=== PATIENT | male | born 1960 | race Caucasian/White ===

== ENCOUNTER 2017-10-27 00:27 | Observation (INO) | payer OTHER, SELFPAY ==
[2017-10-27] VITALS (12 sets, daily range): BP systolic 101–157; BP diastolic 39–81; PULSE 55–78; RESP 14–18; TEMP 36.6–37.2; O2SAT 95–98; BMI 24.9; BMI 24.8
[2017-10-27 00:36] LABS: Bedside Glucose 103 mg/dL (70-110)
--- NOTE | 2017-10-27 00:37 | EKG12_ITS ---
Test Reason : CONFUSION Blood Pressure : / mmHG Vent. Rate : 066 BPM Atrial Rate : 066 BPM P-R Int : 148 ms QRS Dur : 086 ms QT Int : 386 ms P-R-T Axes : 066 069 023 degrees QTc Int : 404 ms Normal sinus rhythm Normal ECG Confirmed by FAB GONZALEZ, SORAYA ([id number]), map editor LINDA HAMILTON ([id number]) on 10/31/2017 2:17:48 PM Referred By: GEORGIANA Confirmed By:SORAYA SANON MD
--- NOTE | 2017-10-27 00:38 | CT_ITS ---
STUDY: CTA NECK WITH CONTRAST REASON FOR EXAM: Male, 57 years old. 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 MIP images were reconstructed from the axial data set. Post-processing of the angiographic images was performed, with multiplanar reformation and 3D reconstruction. Individualized dose optimization techniques were used for this CT. COMPARISON: None. FINDINGS: AORTIC ARCH: Normal visualized aortic arch. Normal origins of the brachiocephalic, left common carotid, and left subclavian arteries. RIGHT CAROTID ARTERIES: Normal right common carotid artery (CCA). Normal right common carotid bulb. Normal origin of the right internal carotid (ICA) artery without a hemodynamically significant stenosis. Normal visualized cervical portion of the right internal carotid artery. Normal origin of the right external carotid artery (ECA). LEFT CAROTID ARTERIES: Normal left common carotid artery (CCA). Normal left common carotid bulb. Normal origin of the left internal carotid (ICA) artery without a hemodynamically significant stenosis. Normal visualized cervical portion of the left internal carotid artery. Normal origin of the left external carotid artery (ECA). VERTEBRAL ARTERIES: There is enhancement within the bilateral vertebral arteries with a small right vertebral artery, and a dominant left vertebral artery. CT/CTA Neck W/WO Contrast IMPRESSION: Normal bilateral cervical carotid and vertebral arteries. The degree of stenosis calculation is in accordance with NASCET criteria. Electronically Signed: Lavon Shukla MD at 2:10 EDT Tel , Service support ,
--- NOTE | 2017-10-27 00:38 | CT_ITS ---
STUDY: CTA OF THE BRAIN REASON FOR EXAM: Male, 57 years old. Headache, dizziness, and visual disturbance RADIATION DOSAGE (If Supplied By Facility): CTDIvol = ( 29.75 ) mGy, DLP = ( 1602.68 ) mGycm TECHNIQUE: CT angiography was performed with a multi-detector CT scanner. Data acquisition was obtained from the skull base through the vertex following intravenous administration of ml of . MIP images were reconstructed from the axial data set. Post-processing of the angiographic images was performed, with multiplanar reformation and 3D reconstruction. Individualized dose optimization techniques were used for this CT. COMPARISON: None. FINDINGS: Normal bilateral petrous carotid arteries. Normal right cavernous carotid artery with a normal supraclinoid bifurcation. Normal left cavernous carotid artery with a normal supraclinoid bifurcation. Normal right A1 segments of the anterior cerebral artery. Normal left A1 segments of the anterior cerebral artery. Normal intact anterior communicating artery (ACOM). Normal bilateral A2 segments of the anterior cerebral arteries. Normal right M1 and M2 segments of the middle cerebral arteries, with a normal M1 bifurcation. Normal left M1 and M2 segments of the middle cerebral arteries, with a normal M1 bifurcation. Normal right posterior communicating artery (PCOM). Normal left posterior communicating artery (PCOM). Normal bilateral vertebral arteries. Normal basilar artery with a normal basilar bifurcation. The visualized bilateral superior cerebellar (SCA) arteries are normal. Normal bilateral P1, P2 and visualized P3 segments of the posterior cerebral arteries. There is no demonstrated aneurysm of the [place]. Mild bilateral periventricular white matter chronic small vessel disease, symmetric in distribution. Geographic hypoattenuation within the left posterior medial temporal lobe with extension into the medial left parieto-occipital lobe. CT/CTA Head W/WO Contrast IMPRESSION: 1. 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 Dedicated MR imaging is recommended for further characterization. 2. No CT angiographic abnormality of the head.. Electronically Signed: Ramos Angel MD at 2:19 EDT Tel , Service support ,
[2017-10-27 00:44] LABS: Absolute Neutrophil Count 6.2 X10^3/uL (2.0-7.7); Basophil# 0.02 X10^3/uL; Basophil% 0.2 % (0-1); Eosinophil# 0.05 X10^3/uL; Eosinophils% 0.6 % (0-5); Hematocrit 41.2 % (40-54); Hemoglobin 13.7 g/dl (13.0-16.5); Lymphocyte % 20.5 % (19-41); Mean Corp Hgb Conc 33.3 g/gl (32-36); Mean Corpuscular Volume 87.3 fL (80-94); Mean Platelet Vol. 10.4 fl (6.2-12.0); Monocyte# 0.72 X10^3/uL; Monocyte% 8.2 % (0-10); Neutrophil # 6.16 X10^3/uL (2.7-7.7); Neutrophil % 70.4 % (47-70); Platelet Count 217 K/mm3 (150-450); Red Blood Count 4.72 M/mm3 (4.6-6.2); White Blood Count 8.8 K/mm3 (4.4-11.0)
[2017-10-27 00:46] LABS: POSITIVE COUNT NO; POSITIVE DIFFERENTIAL NO; POSITIVE MORPHOLOGY NO
[2017-10-27] MEDS: 0.9% Normal Saline 1,000 ML 150 ML IV (00:50)
[2017-10-27 01:05] LABS: Anion Gap 9 (5-15); BUN 16 mg/dL (7-18); BUN/Creat Ratio 14.4 RATIO (10-20); Calcium,Total 8.9 mg/dL (8.5-10.1); Chloride 106 mmol/L (98-107); Creatinine, Serum 1.11 mg/dL (0.70-1.30); EST Glomerular Filtration Rate 72 mL/min (>60); Est Glom Filt Rate - Afr Amer 87 mL/min (>60); Estimated Creatinine Clearance 73.99 ml/min; Glucose 105 mg/dL (74-106); Potassium 3.9 mmol/L (3.5-5.1); Sodium Level 143 mmol/L (136-145)
--- NOTE | 2017-10-27 02:28 | ED.VISSUMM ---
- ER Visit Summary Date of Service: 10/27/17 Chief Complaint: [Confusion] History of Present Illness: The patient is a 57 M [presents to the emergency department with some confusion that started yesterday. 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 Patient's symptoms lasted about 2 hours. Patient's had some blurry vision off and on since yesterday. 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 Patient states that today he developed left-sided headache. He denies any weakness that is focal. Patient denies any paresthesias. Patient is never had symptoms like this before. Patient denies any falls or head injuries.] Physical Examination: [HEENT-PERRLA, EOMI. Cranial nerves II through XII grossly intact. TMs clear. Mucous membranes moist. No adenopathy. Cardiovascular-regular rate and rhythm without murmur or ectopy Lungs-clear to auscultation, chest wall stable without crepitus or subcu emphysema Abdomen-normoactive bowel sounds, soft, nontender, no rebound or rigidity, no peritoneal signs. Neuro qxie-tmhmqo-wxat and heel guardado testing within normal limits, negative Romberg, negative pronator drift, fundi benign. NIH stroke scale was 0. Extremities-intact ?4, normal range of motion, normal pulses, atraumatic] Test Results: [CBC with differential obtained showed a white count of 8.8, hemoglobin 13.7, hematocrit 41, platelets 217. Chemistries unremarkable. Troponin was less than 0.015. EKG shows sinus rhythm with a ventricular rate 66 bpm with no acute ST segment changes. CT scan of the brain showed leal-white matter differentiation abnormality in the posterior medial left temporal parietal occipital lobe of indeterminate age dedicated MR imaging is recommended for further characterization. CTA of head and neck were unremarkable.] Emergency Department Course and Treatment: [Case discussed with hospitalist will evaluate patient for admission] Treatment Plan: [Admit for further workup and evaluation of suspected stroke] Disposition: [Admit] Impression: [CVA] This note was generated with Dragon dictation software. It may contain incorrect words, spelling, and punctuation that were not noted in review of the chart prior to signing ED Disposition - Plan for ED Patient: Chief Complaint: Confusion Referrals: Hawk Holley MD [Primary Care Provider] -
--- NOTE | 2017-10-27 02:33 | ED.DCSUM_ITS ---
- ER Visit Summary Date of Service: 10/27/17 Chief Complaint: [Confusion] History of Present Illness: The patient is a 57 M [presents to the emergency department with some confusion that started yesterday. 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 Patient's symptoms lasted about 2 hours. Patient's had some blurry vision off and on since yesterday. 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 Patient states that today he developed left-sided headache. He denies any weakness that is focal. Patient denies any paresthesias. Patient is never had symptoms like this before. Patient denies any falls or head injuries.] Physical Examination: [HEENT-PERRLA, EOMI. Cranial nerves II through XII grossly intact. TMs clear. Mucous membranes moist. No adenopathy. Cardiovascular-regular rate and rhythm without murmur or ectopy Lungs-clear to auscultation, chest wall stable without crepitus or subcu emphysema Abdomen-normoactive bowel sounds, soft, nontender, no rebound or rigidity, no peritoneal signs. Neuro twrr-nspbaq-rrhy and heel guardado testing within normal limits, negative Romberg, negative pronator drift, fundi benign. NIH stroke scale was 0. Extremities-intact ?4, normal range of motion, normal pulses, atraumatic] Test Results: [CBC with differential obtained showed a white count of 8.8, hemoglobin 13.7, hematocrit 41, platelets 217. Chemistries unremarkable. Troponin was less than 0.015. EKG shows sinus rhythm with a ventricular rate 66 bpm with no acute ST segment changes. CT scan of the brain showed leal- white matter differentiation abnormality in the posterior medial left temporal parietal occipital lobe of indeterminate age dedicated MR imaging is recommended for further characterization. CTA of head and neck were unremarkable.] Emergency Department Course and Treatment: [Case discussed with hospitalist will evaluate patient for admission] Treatment Plan: [Admit for further workup and evaluation of suspected stroke] Disposition: [Admit] Impression: [CVA] This note was generated with Dragon dictation software. It may contain incorrect words, spelling, and punctuation that were not noted in review of the chart prior to signing ED Disposition - Plan for ED Patient: Chief Complaint: Confusion Referrals: Hawk Holley MD [Primary Care Provider] -
--- NOTE | 2017-10-27 02:52 | PCM.HP.STD ---
Problem List (1) CVA (cerebral vascular accident) Status: Acute History of Present Illness Date of Admission: 10/27/17 Chief Complaint: Dizziness, headache, right-sided numbness. The patient is a 57 year old M who was in his normal state of health up until the . That evening, patient started experiencing dizziness as well as a left-sided headache. Patient was also having confusion. 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 Patient called his and had some expressive aphasia plus some slurred speech. Patient got home and then was sent to the emergency room. Patient states that much of his symptoms have resolved in the having a headache which did start with this. Patient underwent a CAT scan that showed a left-sided temporal parietal occipital stroke. Patient is being admitted for further stroke workup. Patient denies ever having had a stroke before. Patient also states that he did have right side visual ziegler deficit. Deficit has resolved. [] Past Medical History Allergies No Known Allergies Allergy (Verified 10/27/17 00:28) Home Medications: Ambulatory Orders Medication Instructions Recorded NK [NK] 10/27/17 Psychiatric History: No pertinent psych hx Lives: Spouse/ Significant Other Smoking Status: Never smoker Tobacco Use: Non-smoker Alcohol: None Drugs: None - *Family History Paternal History Items: Heart Disease Review of Systems Constitutional: Denies: Chills, Fever, Weight Change Eyes: Reports: Vision Change - Right-sided homonymous hemianopia. Denies: Blurred vision, Double vision HEENT: Denies: Difficulty Hearing, Dysphasia Cardiovascular: Denies: Chest Pain, Edema Respiratory: Denies: Cough, Shortness of breath at rest, Sputum production Gastrointestinal: Reports: Nausea, Vomiting. Denies: Abdominal Pain Genitourinary: Denies: Dysuria Musculoskeletal: Denies: Joint Pain, Joint Tenderness Skin: Denies: Rash, Wounds Neurological: Reports: Change in Speech, Slurred speech, Confusion, Headaches, Numbness. Denies: Balance problems, Blurred vision, Double vision, Difficulty swallowing, Focal weakness, Incoordination Psychiatric: Denies: Anxiety, Depression Endocrine: Denies: Change in Body Habitus Hematologic/ Lymphatic: Denies: Easy Bruising, Easy Bleeding, Hx of blood clot VTE Information - Inpt Only VTE Present on Admission: No VTE Pharm Prophylaxis ordered?: Yes Patient Problems: Active and Suspected Problems CVA (cerebral vascular accident) (Acute) - Physical Exam General: Alert, Oriented x3, Cooperative, No apparent distress HEENT: Atraumatic, PERRLA, EOMI, Normocephalic Oral: Moist Mucosa, No Gingival or Mucosal Lesions/ Ulcerations Neck: No Nodes, Thyroid Normal Size and Texture Lungs: Clear to auscultation, Normal air movement, No rhonchi, No wheeze Cardiovascular: Regular rate, Regular Rhythm, Normal S1, Normal S2, No murmurs Abdomen: Bowel Sounds Present, Soft, Non Tender, Non-Distended, No Hepato-splenomegaly Extremities: No edema, No Calf Tenderness Skin: No rashes, No breakdown Musculoskeletal: No Tenderness to Palpation of Joints or Extremities, No Muscle Wasting Neurological: Cranial nerves II-XII grossly intact, Neuro grossly intact, Motor Exam 5/5 strength throughout, Sensory exam intact to light touch and pain, Coordination normal Psych/Mental Status: Normal Affect, Appropriate Vital Signs Temp Pulse Resp BP Pulse Ox 36.7 C 78 18 142/81 H 96 10/27/17 02:32 10/27/17 02:32 10/27/17 02:32 10/27/17 02:32 10/27/17 02:32 Oxygen Delivery Method Room Air Weight: 78.9 kg Body Mass Index (BMI) 24.9 Finger Stick Blood Glucose 103 Laboratory Tests Past 24 Hrs 10/27/17 10/27/17 00:31 00:31 WBC 8.8 RBC 4.72 Hgb 13.7 Hct 41.2 MCV 87.3 MCH 29.0 MCHC 33.3 RDW 13.0 RDW Differential 41.0 Plt Count 217 MPV 10.4 Immature Gran % (Auto) 0.100 Neut % (Auto) 70.4 H Lymph % (Auto) 20.5 [place] % (Auto) 8.2 Eos % (Auto) 0.6 Baso % (Auto) 0.2 Absolute Neuts (auto) 6.2 Absolute Lymphs (auto) 1.80 Total Counted Not Reportable Sodium 143 Potassium 3.9 Chloride 106 Carbon Dioxide 28.0 Anion Gap 9 BUN 16 Creatinine 1.11 Estim Creat Clear Calc 73.99 Est GFR (MDRD) Af Amer 87 Est GFR (MDRD) Non-Af 72 BUN/Creatinine Ratio 14.4 Glucose 105 Calcium 8.9 Troponin I < 0.015 POC Glucose 10/27/17 00:31 POC Glucose 103 Clinical Impression(s) from Imaging Studies Head CTA 10/27/17 00:38 IMPRESSION: 1. 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 Dedicated MR imaging is recommended for further characterization. 2. No CT angiographic abnormality of the head.. Electronically Signed: Ramos Angel MD at 2:19 EDT Tel , Service support , Neck CTA 10/27/17 00:38 IMPRESSION: Normal bilateral cervical carotid and vertebral arteries. The degree of stenosis calculation is in accordance with NASCET criteria. Electronically Signed: Lavon Shukla MD at 2:10 EDT Tel , Service support , EKG reviewed and showed normal sinus rhythm without any acute changes. Assessment/Plan Active and Suspected Problems CVA (cerebral vascular accident) (Acute) 1. Stroke Noted on the CAT scan. Likely subacute. Patient not a candidate for TPA as his symptoms have greatly improved and patient is far outside the window for therapeutic use. Patient will be admitted, he will have an echocardiogram, MRI of the brain (MRA is not necessary as patient has already undergone a CTA of the head neck), neurology consults, bedside swallow evaluation, physical and occupational therapy evaluate and treat. Will start the patient on aspirin and a high intensity statin 2. DVT prophylaxis with Lovenox Anticipated the patient's length of stay will be less than 2 midnights therefore patient will be observation status at this time. Code Visit OBSV E&M: 15341 Initial observation care L3
--- NOTE | 2017-10-27 02:59 | HP.PCM_ITS ---
Problem List (1) CVA (cerebral vascular accident) Status: Acute History of Present Illness Date of Admission: 10/27/17 Chief Complaint: Dizziness, headache, right-sided numbness. The patient is a 57 year old M who was in his normal state of health up until the . That evening, patient started experiencing dizziness as well as a left-sided headache. Patient was also having confusion. 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 Patient called his and had some expressive aphasia plus some slurred speech. Patient got home and then was sent to the emergency room. Patient states that much of his symptoms have resolved in the having a headache which did start with this. Patient underwent a CAT scan that showed a left- sided temporal parietal occipital stroke. Patient is being admitted for further stroke workup. Patient denies ever having had a stroke before. Patient also states that he did have right side visual ziegler deficit. Deficit has resolved. [] Past Medical History Allergies No Known Allergies Allergy (Verified 10/27/17 00:28) Home Medications: Ambulatory Orders Medication Instructions Recorded NK [NK] 10/27/17 Psychiatric History: No pertinent psych hx Lives: Spouse/ Significant Other Smoking Status: Never smoker Tobacco Use: Non-smoker Alcohol: None Drugs: None - *Family History Paternal History Items: Heart Disease Review of Systems Constitutional: Denies: Chills, Fever, Weight Change Eyes: Reports: Vision Change - Right-sided homonymous hemianopia. Denies: Blurred vision, Double vision HEENT: Denies: Difficulty Hearing, Dysphasia Cardiovascular: Denies: Chest Pain, Edema Respiratory: Denies: Cough, Shortness of breath at rest, Sputum production Gastrointestinal: Reports: Nausea, Vomiting. Denies: Abdominal Pain Genitourinary: Denies: Dysuria Musculoskeletal: Denies: Joint Pain, Joint Tenderness Skin: Denies: Rash, Wounds Neurological: Reports: Change in Speech, Slurred speech, Confusion, Headaches, Numbness. Denies: Balance problems, Blurred vision, Double vision, Difficulty swallowing, Focal weakness, Incoordination Psychiatric: Denies: Anxiety, Depression Endocrine: Denies: Change in Body Habitus Hematologic/ Lymphatic: Denies: Easy Bruising, Easy Bleeding, Hx of blood clot VTE Information - Inpt Only VTE Present on Admission: No VTE Pharm Prophylaxis ordered?: Yes Patient Problems: Active and Suspected Problems CVA (cerebral vascular accident) (Acute) - Physical Exam General: Alert, Oriented x3, Cooperative, No apparent distress HEENT: Atraumatic, PERRLA, EOMI, Normocephalic Oral: Moist Mucosa, No Gingival or Mucosal Lesions/ Ulcerations Neck: No Nodes, Thyroid Normal Size and Texture Lungs: Clear to auscultation, Normal air movement, No rhonchi, No wheeze Cardiovascular: Regular rate, Regular Rhythm, Normal S1, Normal S2, No murmurs Abdomen: Bowel Sounds Present, Soft, Non Tender, Non-Distended, No Hepato- splenomegaly Extremities: No edema, No Calf Tenderness Skin: No rashes, No breakdown Musculoskeletal: No Tenderness to Palpation of Joints or Extremities, No Muscle Wasting Neurological: Cranial nerves II-XII grossly intact, Neuro grossly intact, Motor Exam 5/5 strength throughout, Sensory exam intact to light touch and pain, Coordination normal Psych/Mental Status: Normal Affect, Appropriate Vital Signs Temp Pulse Resp BP Pulse Ox 36.7 C 78 18 142/81 H 96 10/27/17 02:32 10/27/17 02:32 10/27/17 02:32 10/27/17 02:32 10/27/17 02:32 Oxygen Delivery Method Room Air Weight: 78.9 kg Body Mass Index (BMI) 24.9 Finger Stick Blood Glucose 103 Laboratory Tests Past 24 Hrs 10/27/17 10/27/17 00:31 00:31 WBC 8.8 RBC 4.72 Hgb 13.7 Hct 41.2 MCV 87.3 MCH 29.0 MCHC 33.3 RDW 13.0 RDW Differential 41.0 Plt Count 217 MPV 10.4 Immature Gran % (Auto) 0.100 Neut % (Auto) 70.4 H Lymph % (Auto) 20.5 [place] % (Auto) 8.2 Eos % (Auto) 0.6 Baso % (Auto) 0.2 Absolute Neuts (auto) 6.2 Absolute Lymphs (auto) 1.80 Total Counted Not Reportable Sodium 143 Potassium 3.9 Chloride 106 Carbon Dioxide 28.0 Anion Gap 9 BUN 16 Creatinine 1.11 Estim Creat Clear Calc 73.99 Est GFR (MDRD) Af Amer 87 Est GFR (MDRD) Non-Af 72 BUN/Creatinine Ratio 14.4 Glucose 105 Calcium 8.9 Troponin I < 0.015 POC Glucose 10/27/17 00:31 POC Glucose 103 Clinical Impression(s) from Imaging Studies Head CTA 10/27/17 00:38 IMPRESSION: 1. 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 Dedicated MR imaging is recommended for further characterization. 2. No CT angiographic abnormality of the head.. Electronically Signed: Ramos Angel MD at 2:19 EDT Tel , Service support , Neck CTA 10/27/17 00:38 IMPRESSION: Normal bilateral cervical carotid and vertebral arteries. The degree of stenosis calculation is in accordance with NASCET criteria. Electronically Signed: Lavon Shukla MD at 2:10 EDT Tel , Service support , EKG reviewed and showed normal sinus rhythm without any acute changes. Assessment/Plan Active and Suspected Problems CVA (cerebral vascular accident) (Acute) 1. Stroke * Noted on the CAT scan. Likely subacute. * Patient not a candidate for TPA as his symptoms have greatly improved and patient is far outside the window for therapeutic use. * Patient will be admitted, he will have an echocardiogram, MRI of the brain ( MRA is not necessary as patient has already undergone a CTA of the head neck), neurology consults, bedside swallow evaluation, physical and occupational therapy evaluate and treat. * Will start the patient on aspirin and a high intensity statin 2. DVT prophylaxis with Lovenox Anticipated the patient's length of stay will be less than 2 midnights therefore patient will be observation status at this time. Code Visit OBSV E&M: 94728 Initial observation care L3
--- NOTE | 2017-10-27 03:11 | MRI_ITS ---
STUDY: MRI BRAIN WITH AND WITHOUT CONTRAST REASON FOR EXAM: Male, 57 years old. Memory loss. Unable to find words. TECHNIQUE: Standardized multiplanar fat and water weighted pulse sequences were obtained. 8 ml of Gadavist contrast material was administered intravenously for the contrast portion of the examination. COMPARISON: CTA head and neck 10/27/2017. FINDINGS: Restricted diffusion involving the left anterior para hippocampus/left hippocampus and a smaller portion of the left lingual gyrus. This is also visible on the T2 FLAIR sequences. This is subacute ischemic infarct. Normal size of the ventricles and extra-axial spaces for the patient's age. Normal white matter tracts of the supratentorial brain. Normal bilateral basal ganglia. Normal thalami. There is no extra-axial fluid accumulation. Normal flow voids within the major intracranial circulation suggesting patency by spin echo criteria. Normal venous enhancement. There is no enhancing intra-axial or extra-axial abnormality. Normal sella turcica, pituitary gland, infundibular stalk, optic chiasm and hypothalamus. Normal tectal plate and pineal gland. Normal midbrain, lonnie and medulla. Normal cerebellum. Normal basal cisterns. Normal bilateral temporal bones. Normal bilateral internal auditory canals. No demonstrated orbital abnormality, within the constraints of a routine brain study. Normal visualized paranasal sinuses. Normal calvarium and skull base. Normal visualized soft tissue structures. Normal visualized upper cervical spine. MRI/Brain W/WO Contrast IMPRESSION: Subacute cortical based ischemic infarct involving the left parahippocampus/hippocampus and smaller portions of the left lingual gyrus. This is suspiciously cardioembolic. Electronically Signed: Gerardo Conner MD at 9:22 EDT , Service support ,
--- NOTE | 2017-10-27 03:11 | ECHOD_ITS ---
Version 2 Reason For Study: TIA/STROKE Procedure This was a 2D Doppler, Color Flow transthoracic echocardiogram. Exam performed portable in patient room. Left Ventricle Normal LV size. Left ventricular systolic function is normal. The estimated ejection fraction is 60 %. Transmitral diastolic flow velocities suggest mild (stage 1) diastolic dysfunction (reversed pattern). No regional wall motion abnormalities noted. Right Ventricle Normal RV size. Normal systolic function. Atria Normal left atrium. Normal right atrium. Patent foramen ovale. Mitral Valve Normal mitral valve. Trivial eccentric mitral valve insufficiency. Tricuspid Valve Normal tricuspid valve. Mild (1+) tricuspid valve insufficiency. Aortic Valve Trisinus/trileaflet aortic valve. Mild (1+) eccentric aortic valve insufficiency. Pulmonic Valve Normal pulmonic valve. Great Vessels Mild to moderately dilated aortic root. The pulmonary artery is normal size. Normal inferior vena cava. Pericardium/Pleural No pericardial effusion. Medication Performed a rapid injection of agitated mix of 9 cc saline and 1cc air to assess for atrial septal defect. MMode/2D Measurements & Calculations LVIDd: 4.2 cm IVSd: 1.0 cm Ao root diam: 4.4 cm LVIDs: 2.5 cm LVPWd: 1.2 cm LA dimension: 2.8 cm RVDd: 4.1 cm FS: 41.4 % LAV(MOD-bp): 47.9 ml LAV(MOD-bp) Indexed: 24.4 ml/m2 LA A4 area: 15.2 cm2 RA A4 area: 12.2 cm2 LAV(MOD-sp2): 47.7 ml LAV(MOD-sp4): 40.9 ml Time Measurements MV dec time: 0.25 sec Doppler Measurements & Calculations MV E max joel: 59.9 cm/sec Lat Peak E' Joel: 11.6 cm/sec Med Peak E' Joel: 8.1 cm/sec MV A max joel: 70.2 cm/sec E/E' lat: 5.2 E/E' med: 7.4 MV E/A: 0.85 MV V2 max: 80.9 cm/sec MV P1/2t max joel: 80.9 cm/sec Ao V2 max: 103.4 cm/sec MV max P.6 mmHg MV P1/2t: 104.2 msec Ao max P.3 mmHg MV V2 mean: 44.9 cm/sec MV dec slope: 227.4 cm/sec2 Ao V2 mean: 72.1 cm/sec MV mean P.94 mmHg MVA(P1/2t): 2.1 cm2 Ao mean P.3 mmHg MV V2 VTI: 27.8 cm Ao V2 VTI: 21.3 cm AI max joel: 344.2 cm/sec LV V1 max: 94.5 cm/sec PA V2 max: 89.6 cm/sec AI max P.4 mmHg LV V1 max P.6 mmHg AI dec slope: 164.4 cm/sec2 LV V1 mean P.7 mmHg AI P1/2t: 613.4 msec LV V1 mean: 60.4 cm/sec LV V1 VTI: 20.6 cm Interpretation Summary Normal LV size. Left ventricular systolic function is normal. The estimated ejection fraction is 60 %. Transmitral diastolic flow velocities suggest mild (stage 1) diastolic dysfunction (reversed pattern). Mild to moderately dilated aortic root. Patent foramen ovale. Ordering Physician: Nghia Barnett Referring Physician: Severino Holley Performed By: Glen Avendaño RCS
[2017-10-27] MEDS: Acetaminophen 325 MG Tablet 650 MG PO (03:44)
[2017-10-27 06:12] LABS: Cholesterol 127 mg/dL (200); High Density Lipoprotein 36 mg/dL; Triglycerides 54 mg/dL; Very Low Density Lipoprotein 11 mg/dL (5-40)
[2017-10-27] MEDS: Enoxaparin 40 MG/0.4 ML Syringe SC (09:23)
[2017-10-27] MEDS: Aspirin 81 MG TAB.CHEW PO (09:24)
--- NOTE | 2017-10-27 10:03 | PCM.CONS.GEN ---
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 today he is improved, not baseline. still has headache and confusion. non-smoker. no alcohol and denies hypersomnia, did have a sleep study 20yrs ago for unclear reasons at [facility]. reports doesnt check bp at home, but when he gets his sandy physicals it has been good. does admit to recent stress, reports not severe.had echo this am, results pending The patient is a 57 year old M who was in his normal state of health up until the . That evening, patient started experiencing dizziness as well as a left-sided headache. Patient was also having confusion. 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 Patient called his and had some expressive aphasia plus some slurred speech. Patient got home and then was sent to the emergency room. Patient states that much of his symptoms have resolved in the having a headache which did start with this. Patient underwent a CAT scan that showed a left-sided temporal parietal occipital stroke. Patient is being admitted for further stroke workup. Patient denies ever having had a stroke before. Patient also states that he did have right side visual ziegler deficit. Deficit has resolved. Past Medical History Allergies No Known Allergies Allergy (Verified 10/27/17 00:28) Home Medications: Ambulatory Orders Medication Instructions Recorded NK [NK] 10/27/17 Psychiatric History: No pertinent psych hx Lives: Spouse/ Significant Other Smoking Status: Never smoker Tobacco Use: Non-smoker Alcohol: None Drugs: None - *Family History Paternal History Items: Heart Disease Review of Systems Constitutional: Denies: Chills, Fever, Weight Change HEENT: Denies: Head Aches, Sinus Congestion, Sinus Drainage Cardiovascular: Denies: Chest Pain, Palpitations Respiratory: Denies: Cough, Shortness of breath at rest, Sputum production Gastrointestinal: Denies: Abdominal Pain, Nausea, Vomiting Genitourinary: Denies: Dysuria Musculoskeletal: Denies: Joint Pain, Joint Tenderness Skin: Denies: Rash, Wounds Neurological: Denies: Numbness, Tingling, Focal weakness Psychiatric: Denies: Anxiety, Depression, Homicidal Ideations, Suicidal Ideations Hematologic/ Lymphatic: Denies: Easy Bruising, Easy Bleeding Patient Problems: Active and Suspected Problems CVA (cerebral vascular accident) (Acute) - Physical Exam General: Alert, Oriented x3, Cooperative HEENT: Atraumatic, PERRLA, EOMI, Normocephalic Neck: Supple, No JVD, Negative Carotid Bruits Lungs: Clear to auscultation, Normal air movement Cardiovascular: Regular rate, No murmurs Abdomen: Bowel Sounds Present, Soft, Non Tender Extremities: No edema, Capillary Refill Less than 3 Seconds Skin: No rashes, No breakdown Musculoskeletal: No Tenderness to Palpation of Joints or Extremities Neurological: Cranial nerves II-XII grossly intact Psych/Mental Status: Normal Affect, Appropriate Vital Signs Temp Pulse Resp BP Pulse Ox 36.7 C 56 L 16 113/71 97 10/27/17 09:10 10/27/17 09:10 10/27/17 09:10 10/27/17 09:10 10/27/17 09:10 Oxygen Delivery Method Room Air Weight: 78.6 kg Body Mass Index (BMI) 24.8 Laboratory Tests Past 24 Hrs 10/27/17 05:30 Triglycerides 54 Cholesterol 127 LDL Cholesterol 80 VLDL Cholesterol 11 HDL Cholesterol 36 L Current Home Med List Medication Instructions Recorded Confirmed Type NK [NK] 10/27/17 10/27/17 History takes herbal supplements at home, super algae Current Medications Generic Name Dose Route Start Last Admin Trade Name Freq PRN Reason Stop Dose Admin Acetaminophen 650 mg 10/27/17 03:11 10/27/17 03:44 Tylenol PO 650 mg Q6H PRN PRN Administration Mild Pain (1-3)/Temp > 100.7 F Aspirin 81 mg 10/27/17 08:00 10/27/17 09:24 Aspirin, Baby PO 81 mg DAILY@0800 [facility] Administration Atorvastatin Calcium 80 mg 10/27/17 22:00 Lipitor PO DAILY@2200 [facility] Enoxaparin Sodium 40 mg 10/27/17 10:00 10/27/17 09:23 Lovenox SC 40 mg DAILY@1000 [facility] Administration Magnesium Hydroxide 30 ml 10/27/17 03:11 Milk Of Magnesia PO DAILY PRN Constipation Ondansetron HCl 4 mg 10/27/17 03:11 Zofran IV Q8H PRN PRN NAUSEA Sodium Chloride 5 - 30 ml 10/27/17 03:41 IV UD PRN SALINE FLUSH mri reviewed acute left salon leader infarct cta head and neck reviewed, no stenosis Assessment/Plan Active and Suspected Problems CVA (cerebral vascular accident) (Acute) left salon leader infarct, acute, likely idiopathic pt/ot/speech likely ok to dc home if echo normal and sinus on tele consider outpt event monitor pt defers rx for stress rec exercise as outpt rec outpt sleep study outpt followup if above negative
--- NOTE | 2017-10-27 10:14 | CON.PCM_ITS ---
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 today he is improved, not baseline. still has headache and confusion. non-smoker. no alcohol and denies hypersomnia, did have a sleep study 20yrs ago for unclear reasons at [facility]. reports doesnt check bp at home, but when he gets his sandy physicals it has been good. does admit to recent stress, reports not severe.had echo this am, results pending The patient is a 57 year old M who was in his normal state of health up until the . That evening, patient started experiencing dizziness as well as a left-sided headache. Patient was also having confusion. 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 Patient called his and had some expressive aphasia plus some slurred speech. Patient got home and then was sent to the emergency room. Patient states that much of his symptoms have resolved in the having a headache which did start with this. Patient underwent a CAT scan that showed a left- sided temporal parietal occipital stroke. Patient is being admitted for further stroke workup. Patient denies ever having had a stroke before. Patient also states that he did have right side visual ziegler deficit. Deficit has resolved. Past Medical History Allergies No Known Allergies Allergy (Verified 10/27/17 00:28) Home Medications: Ambulatory Orders Medication Instructions Recorded NK [NK] 10/27/17 Psychiatric History: No pertinent psych hx Lives: Spouse/ Significant Other Smoking Status: Never smoker Tobacco Use: Non-smoker Alcohol: None Drugs: None - *Family History Paternal History Items: Heart Disease Review of Systems Constitutional: Denies: Chills, Fever, Weight Change HEENT: Denies: Head Aches, Sinus Congestion, Sinus Drainage Cardiovascular: Denies: Chest Pain, Palpitations Respiratory: Denies: Cough, Shortness of breath at rest, Sputum production Gastrointestinal: Denies: Abdominal Pain, Nausea, Vomiting Genitourinary: Denies: Dysuria Musculoskeletal: Denies: Joint Pain, Joint Tenderness Skin: Denies: Rash, Wounds Neurological: Denies: Numbness, Tingling, Focal weakness Psychiatric: Denies: Anxiety, Depression, Homicidal Ideations, Suicidal Ideations Hematologic/ Lymphatic: Denies: Easy Bruising, Easy Bleeding Patient Problems: Active and Suspected Problems CVA (cerebral vascular accident) (Acute) - Physical Exam General: Alert, Oriented x3, Cooperative HEENT: Atraumatic, PERRLA, EOMI, Normocephalic Neck: Supple, No JVD, Negative Carotid Bruits Lungs: Clear to auscultation, Normal air movement Cardiovascular: Regular rate, No murmurs Abdomen: Bowel Sounds Present, Soft, Non Tender Extremities: No edema, Capillary Refill Less than 3 Seconds Skin: No rashes, No breakdown Musculoskeletal: No Tenderness to Palpation of Joints or Extremities Neurological: Cranial nerves II-XII grossly intact Psych/Mental Status: Normal Affect, Appropriate Vital Signs Temp Pulse Resp BP Pulse Ox 36.7 C 56 L 16 113/71 97 10/27/17 09:10 10/27/17 09:10 10/27/17 09:10 10/27/17 09:10 10/27/17 09:10 Oxygen Delivery Method Room Air Weight: 78.6 kg Body Mass Index (BMI) 24.8 Laboratory Tests Past 24 Hrs 10/27/17 05:30 Triglycerides 54 Cholesterol 127 LDL Cholesterol 80 VLDL Cholesterol 11 HDL Cholesterol 36 L Current Home Med List Medication Instructions Recorded Confirmed Type NK [NK] 10/27/17 10/27/17 History takes herbal supplements at home, super algae Current Medications Generic Name Dose Route Start Last Admin Trade Name Freq PRN Reason Stop Dose Admin Acetaminophen 650 mg 10/27/17 03:11 10/27/17 03:44 Tylenol PO 650 mg Q6H PRN PRN Administration Mild Pain (1-3)/Temp > 100.7 F Aspirin 81 mg 10/27/17 08:00 10/27/17 09:24 Aspirin, Baby PO 81 mg DAILY@0800 [facility] Administration Atorvastatin Calcium 80 mg 10/27/17 22:00 Lipitor PO DAILY@2200 [facility] Enoxaparin Sodium 40 mg 10/27/17 10:00 10/27/17 09:23 Lovenox SC 40 mg DAILY@1000 [facility] Administration Magnesium Hydroxide 30 ml 10/27/17 03:11 Milk Of Magnesia PO DAILY PRN Constipation Ondansetron HCl 4 mg 10/27/17 03:11 Zofran IV Q8H PRN PRN NAUSEA Sodium Chloride 5 - 30 ml 10/27/17 03:41 IV UD PRN SALINE FLUSH mri reviewed acute left smasher infarct cta head and neck reviewed, no stenosis Assessment/Plan Active and Suspected Problems CVA (cerebral vascular accident) (Acute) left smasher infarct, acute, likely idiopathic pt/ot/speech likely ok to dc home if echo normal and sinus on tele consider outpt event monitor pt defers rx for stress rec exercise as outpt rec outpt sleep study outpt followup if above negative
--- NOTE | 2017-10-27 12:14 | CASEMGMT ---
Face to Face with patient for initial transition planning/care coordination assessment. TORI PEDERSEN introduced self and role at [facility], pt voices understanding and consents to assessment at this time. Pt is lying in bed in no distress at this time. Pt is A/O x4 at this time and answers all questions appropriately at this time. Care providers, pharmacy, and demographics verified. See attached link. Pt voices no further concerns/needs at this time. Advised pt to ask for CM if any further questions/concerns/needs arise, voices understanding. Outpatient order for speech obtained per speech therapy recommendation and faxed to [facility]. Original order to pt/ with instruction, voices understanding. PLAN : Home w/ OP speech therapy [facility] TORI PEDERSEN
--- NOTE | 2017-10-27 15:49 | PCM.DC ---
- Discharge Diagnoses Current Active Problems: Current Active and Chronic Problems CVA (cerebral vascular accident) (Acute) You will use the following diet at home:: Regular Your food should be the consistency of: Regular Discharge Activity: Return to Normal Activity Weight Bearing Status: Weight bearing as tolerated Call your doctor if you observe: Fever of 101 or Higher, Numbness or Tingling, Shortness of breath, Dizziness, Fainting spells, Swelling in the ankles, Chest pain, Increased palpitations (irregular heartbeat), Uncontrolled pain Allergies/Adverse Reactions: Allergies No Known Allergies Allergy (Verified 10/27/17 00:28) Medications to take at Discharge Aspirin [Aspirin, Baby] 81 mg PO DAILY@0800 #90 tab.chew 10/27/17 Atorvastatin Calcium [Lipitor] 80 mg PO DAILY@2200 #90 tab 10/27/17 The following prescriptions were given: Aspirin [Aspirin, Baby] 81 mg PO DAILY@0800 #90 tab.chew Atorvastatin Calcium [Lipitor] 80 mg PO DAILY@2200 #90 tab Primary Care Physician: Hawk Holley MD [Primary Care Provider] - Please follow up with your Primary Care Physician in: 1 week. Please Follow Up With: Maurice Corona MD When: 2 weeks.
--- NOTE | 2017-10-27 16:14 | CASEMGMT ---
Pt's scripts sent to [facility] of [facility]. [facility]. Estefani, PCU discharge coordinator, aware at this time and will update RN so that pt is aware. Isabel VALLE CM
--- NOTE | 2017-10-27 16:23 | PCM.DC.SUM ---
Discharge Date and Diagnosis - Problem List Patient Problems: Active and Suspected Problems CVA (cerebral vascular accident) (Acute) Date of Admission: 10/27/17 Date of Discharge: 10/27/17 - Primary Discharge Diagnosis Active and Suspected Problems CVA (cerebral vascular accident) (Acute) #1 subacute left INSPECTOR CRYSTAL infarct, cryptogenic. #2 patent foramen ovale. #3 suspected obstructive sleep apnea, recommended sleep study as outpatient. Hospital Course and Treatment Imaging Results: Clinical Impression(s) from Imaging Studies Head CTA 10/27/17 00:38 IMPRESSION: 1. 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 Dedicated MR imaging is recommended for further characterization. 2. No CT angiographic abnormality of the head.. Electronically Signed: Ramos Angel MD at 2:19 EDT Tel , Service support , Neck CTA 10/27/17 00:38 IMPRESSION: Normal bilateral cervical carotid and vertebral arteries. The degree of stenosis calculation is in accordance with NASCET criteria. Electronically Signed: Lavon Shukla MD at 2:10 EDT Tel , Service support , Brain MRI 10/27/17 03:11 IMPRESSION: Subacute cortical based ischemic infarct involving the left parahippocampus/hippocampus and smaller portions of the left lingual gyrus. This is suspiciously cardioembolic. Electronically Signed: Gerardo Conner MD at 9:22 EDT , Service support , Dr. Corona, cardiology. Procedures: 2-D Echocardiogram, EKG Summary of Care Provided: The patient is a 57 year old M admitted because of symptoms of dizziness, left-sided headache for evaluation. Initially, CTA of the neck performed and revealed castro white matter differentiation abnormality in the posterior medial left temporal parietal occipital lobe of indeterminate age. CTA of the neck revealed no evidence of hemodynamically significant vascular disease or stenosis. Patient had no focal motor deficit. His headache and dizziness improved today. MRI of the brain revealed subacute cortical based ischemic infarct involving the left para hippocampus/hippocampus and smaller portions of the left lingual gyrus consistent with subacute left INSPECTOR CRYSTAL infarct which is probably cryptogenic. Patient's vital signs remained stable. EKG revealed normal sinus rhythm without evidence of acute ischemic changes or cardiac arrhythmias. Troponin was negative. 2D echocardiogram revealed normal LV size and function, ejection fraction 60% and revealed patent foramen ovale. Neurology consulted. Patient was treated with aspirin and statins. Lipid profile was normal. Patient symptoms improved and his blood pressure and heart rate remained stable. This stroke is likely cryptogenic stroke due to patent foramen ovale. There was no indication to start patient on anticoagulation. Patient discharged home in a stable medical condition, discharged on aspirin and Lipitor, I recommended to follow-up with PCP in 1 week and follow-up with neurology in 2 weeks. Discharge Activity: Return to Normal Activity Weight Bearing Status: Weight bearing as tolerated Call your doctor if you observe: Fever of 101 or Higher, Numbness or Tingling, Shortness of breath, Dizziness, Fainting spells, Swelling in the ankles, Chest pain, Increased palpitations (irregular heartbeat), Uncontrolled pain Home Medications: Medications to take at Discharge Aspirin [Aspirin, Baby] 81 mg PO DAILY@0800 #90 tab.chew 10/27/17 Atorvastatin Calcium [Lipitor] 80 mg PO DAILY@2200 #90 tab 10/27/17 Following Prescrptions Were Given to Patient: Aspirin [Aspirin, Baby] 81 mg PO DAILY@0800 #90 tab.chew Atorvastatin Calcium [Lipitor] 80 mg PO DAILY@2200 #90 tab Primary Care Physician: Hawk Holley MD [Primary Care Provider] - Please follow up with your Primary Care Physician in: 1 week. Please Follow Up With: Maurice Corona MD When: 2 weeks. Disposition: Home Minutes spent on discharge:: 32 Medical Necessity - Tobacco Use Smoking Status: Never smoker Tobacco Use: Non-smoker Meaningful Use Info Meaningful Use Diagnoses (Choose all that apply): Ischemic CVA - CVA Therapy Assessed for PT,OT and/or ST?: Yes - Ischemic Stroke Antithrombotic order at d/c?: Yes Dx of Atrial fib/flutter?: No Anticoagulant at discharge?: No Reason anticoagulant not ordered: Treatment not Indicated Statins at discharge?: Yes Primary Dx Acute Ischemic CVA?: Yes IV tPA ordered during stay?: No Reason IV t-PA not ordered: Treatment not Indicated Code Visit Inpatient E&M: 17579 Disch Hosp
--- NOTE | 2017-10-27 16:25 | CHAPLAIN ---
Type of Pastoral Visit _x__ Initial Visit ___ Follow-up Visit ___ On-call Visit ___ General Patient Visit ___ Spiritual Assessment ___ Family Conference ___ Bereavement ___ Rapid Response ___ Code Blue ___ Other (describe below) Pastoral Care Referral From _x__ Patient ___ Family ___ Nurse ___ Physician ___ First Line Production Supervisor ___ Imaging Technologist ___ Other (describe below) Sacrament/Intervention _x__ Active listening ___ Anointing ___ Jain ___ Bereavement ___ Communion ___ Jinny exploration ___ _x__ Life review _x__ Prayer ___ Reconciliation ___ Sacrament of Sick _x__ Supportive presence ___ Wedding ___ Other (describe below) Pastoral Comments
--- NOTE | 2017-10-27 16:29 | DS.PCM_ITS ---
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 #2 patent foramen ovale. #3 suspected obstructive sleep apnea, recommended sleep study as outpatient. Hospital Course and Treatment Imaging Results: Clinical Impression(s) from Imaging Studies Head CTA 10/27/17 00:38 IMPRESSION: 1. 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 Dedicated MR imaging is recommended for further characterization. 2. No CT angiographic abnormality of the head.. Electronically Signed: Ramos Angel MD at 2:19 EDT Tel , Service support , Neck CTA 10/27/17 00:38 IMPRESSION: Normal bilateral cervical carotid and vertebral arteries. The degree of stenosis calculation is in accordance with NASCET criteria. Electronically Signed: Lavon Shukla MD at 2:10 EDT Tel , Service support , Brain MRI 10/27/17 03:11 IMPRESSION: Subacute cortical based ischemic infarct involving the left parahippocampus/hippocampus and smaller portions of the left lingual gyrus. This is suspiciously cardioembolic. Electronically Signed: Gerardo Conner MD at 9:22 EDT , Service support , Dr. Corona, cardiology. Procedures: 2-D Echocardiogram, EKG Summary of Care Provided: The patient is a 57 year old M admitted because of symptoms of dizziness, left- sided headache for evaluation. Initially, CTA of the neck performed and revealed castro white matter differentiation abnormality in the posterior medial left temporal parietal occipital lobe of indeterminate age. CTA of the neck revealed no evidence of hemodynamically significant vascular disease or stenosis. Patient had no focal motor deficit. His headache and dizziness improved today. MRI of the brain revealed subacute cortical based ischemic infarct involving the left para hippocampus/hippocampus and smaller portions of the left lingual gyrus consistent with subacute left AUTOMATIC MAINTAINER infarct which is probably cryptogenic. Patient's vital signs remained stable. EKG revealed normal sinus rhythm without evidence of acute ischemic changes or cardiac arrhythmias. Troponin was negative. 2D echocardiogram revealed normal LV size and function, ejection fraction 60% and revealed patent foramen ovale. Neurology consulted. Patient was treated with aspirin and statins. Lipid profile was normal. Patient symptoms improved and his blood pressure and heart rate remained stable. This stroke is likely cryptogenic stroke due to patent foramen ovale. There was no indication to start patient on anticoagulation. Patient discharged home in a stable medical condition, discharged on aspirin and Lipitor, I recommended to follow-up with PCP in 1 week and follow-up with neurology in 2 weeks. Discharge Activity: Return to Normal Activity Weight Bearing Status: Weight bearing as tolerated Call your doctor if you observe: Fever of 101 or Higher, Numbness or Tingling, Shortness of breath, Dizziness, Fainting spells, Swelling in the ankles, Chest pain, Increased palpitations (irregular heartbeat), Uncontrolled pain Home Medications: Medications to take at Discharge Aspirin [Aspirin, Baby] 81 mg PO DAILY@0800 #90 tab.chew 10/27/17 Atorvastatin Calcium [Lipitor] 80 mg PO DAILY@2200 #90 tab 10/27/17 Following Prescrptions Were Given to Patient: Aspirin [Aspirin, Baby] 81 mg PO DAILY@0800 #90 tab.chew Atorvastatin Calcium [Lipitor] 80 mg PO DAILY@2200 #90 tab Primary Care Physician: Hawk Holley MD [Primary Care Provider] - Please follow up with your Primary Care Physician in: 1 week. Please Follow Up With: Maurice Corona MD When: 2 weeks. Disposition: Home Minutes spent on discharge:: 32 Medical Necessity - Tobacco Use Smoking Status: Never smoker Tobacco Use: Non-smoker Meaningful Use Info Meaningful Use Diagnoses (Choose all that apply): Ischemic CVA - CVA Therapy Assessed for PT,OT and/or ST?: Yes - Ischemic Stroke Antithrombotic order at d/c?: Yes Dx of Atrial fib/flutter?: No Anticoagulant at discharge?: No Reason anticoagulant not ordered: Treatment not Indicated Statins at discharge?: Yes Primary Dx Acute Ischemic CVA?: Yes IV tPA ordered during stay?: No Reason IV t-PA not ordered: Treatment not Indicated Code Visit Inpatient E&M: [id number] Disch Hosp
== END 2017-10-27 17:03 | disposition home or self-care (01) | DRG 65 ==
LOC: ED 01:18 → PCU 03:07
PROVIDERS: Emergency Provider Emergency Medicine; Family Provider Family Medicine; PCP Family Medicine; Visit Provider Hospitalist
DX: I63.532 Cerebral infarction due to unspecified occlusion or stenosis of left posterior cerebral artery (principal); Q21.1 Atrial septal defect; R47.01 Aphasia; R40.4 Transient alteration of awareness; R47.81 Slurred speech; Z79.82 Long term (current) use of aspirin; H53.8 Other visual disturbances; R29.700 NIHSS score 0
CPT/HCPCS: 36415; 70496; 70498; 70553; 80048; 80061; 82962; 84484; 85025; 92507; 92523; 93005; 93306; 97162; 97165; 99218; 99282; A9585; J7030; Q9957; Q9967; A4216; G0378

== ENCOUNTER → 2017-10-31 11:52 | Outpatient (CLI) | payer OTHER, SELFPAY ==
[2017-10-31 12:41] LABS: Partial Thromboplast Time 30.5 Seconds (24.1-36.2)
[2017-11-03 20:07] LABS: Factor VIII Activity 131 % (57-163); Factor XI Activity 83 % (60-150)
== END ==
PROVIDERS: Family Provider Family Medicine; PCP Family Medicine; Visit Provider Nurse Practitioner Acute Care
DX: I48.91 Unspecified atrial fibrillation (principal); Z86.73 Personal history of transient ischemic attack (TIA), and cerebral infarction without residual deficits
CPT/HCPCS: 36415; 81240; 81241; 85240; 85245; 85270; 85610; 85730

== ENCOUNTER 2017-11-02 14:37 | Outpatient (RCR) | payer OTHER, SELFPAY ==
--- NOTE | 2017-11-02 17:49 | HP.SP.AD ---
History - History Date of Eval: 11/02/17 Referring Doctor: Dr. Kailash MD Medical Diagnosis (from RX): Left LOCAL TELEPHONE OPERATOR infarct (I.66.21) Date of Onset of Diagnosis: 07/07/2017 Previous speech therapy: No Other Relevant Medical History/Diagnoses/Surgery: 10/27/2017 MRI revealed subacute cortical based ischemic infarct involving the left parahippocampus / hippocampus and smaller portions of the left lingual gyrus. 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 The CLQT is to assess strength and weaknesses in five cognitive domains. Severity ratings are within normal limits, mild, moderate, severe deficits. The subtests are as follows: Date: 11/02/17 - Attention Attention: WNL - Memory Memory: WNL - Executive Functions Executive Functions: WNL - Language Language: WNL - Visuospatial Skills Visuospatial Skills: WNL - Composite Severity Rating Composite Severity Rating: WNL - Clock Drawing Severity Rating Clock Drawing Severity Rating: WNL Plan - Plan Plan: No further skilled speech-language intervention warrented at this time. - Recommendations MBS: No Treatment Warranted: No - Prognosis Prognosis: Excellent Education - Patient Instruction Patient Education: Diagnosis, Treatment Plan Person Taught: Patient, Significant Other Teaching Method: Discussion Response to teaching: Return demonstration
--- NOTE | 2017-11-02 17:53 | HP.SP.DC_ITS ---
ST Discharge Summary - Discharged: Discharge: Cognitive communication assessment completed this date, with the Patient presenting with cognitive communication abilities within functional limitations per results of the Cognitive Linguistic Quick Test (CLQT). Discussed results and recommendations with the Patient and Patient?s , al expressing agreement and understanding. Encouraged both to contact their primary care physician if any changes in cognitive communication abilities are appreciated. No further skilled speech-language intervention is warranted at this time.
== END 2017-11-02 19:00 | disposition home or self-care (01) ==
LOC: SP 14:37
PROVIDERS: Family Provider Family Medicine; PCP Family Medicine; Visit Provider Hospitalist
DX: I66.21 Occlusion and stenosis of right posterior cerebral artery (principal)
CPT/HCPCS: 92523

== ENCOUNTER → 2017-12-11 06:03 | Outpatient (CLI) | payer OTHER, SELFPAY ==
[2017-12-11 07:38] LABS: AST(SGOT) 13 U/L (15-37); Alanine Aminotransfer ALT/SGPT 35 U/L (16-61); Albumin, Serum 3.5 g/dL (3.2-5.0); Alkaline Phosphatase 52 U/L (45-117); Bilirubin, Direct 0.15 mg/dL (0.00-0.30); Cholesterol 95 mg/dL (200); Globulin 2.9 g/dL (2.2-4.2); High Density Lipoprotein 44 mg/dL; Protein, Total 6.4 g/dL (6.4-8.2); Triglycerides 62 mg/dL; Very Low Density Lipoprotein 12 mg/dL (5-40)
== END ==
PROVIDERS: Family Provider Family Medicine; PCP Family Medicine; Visit Provider Internal Medicine Cardiovascular Disease
DX: Q21.1 Atrial septal defect (principal); E78.5 Hyperlipidemia, unspecified; Z86.73 Personal history of transient ischemic attack (TIA), and cerebral infarction without residual deficits
CPT/HCPCS: 36415; 80061; 80076

== ENCOUNTER 2017-12-31 17:51 | Observation (INO) | payer OTHER, SELFPAY ==
[2017-12-31 17:52] VITALS: BP 129/82; PULSE 76; RESP 16; TEMP 36.7; O2SAT 97; BMI 26.0
[2017-12-31 18:06] LABS: Bedside Glucose 143 mg/dL (70-110)
--- NOTE | 2017-12-31 18:20 | CT_ITS ---
STUDY: CT BRAIN WITHOUT CONTRAST REASON FOR EXAM: Male, 57 years old. WEAKNESS LT SIDE WITH HISTORY OF CVA OCTOBER 2017 RADIATION DOSAGE (If Supplied By Facility): CTDIvol = ( 44.99 ) mGy, DLP = ( 880.47 ) mGycm TECHNIQUE: Transaxial CT imaging of the brain was performed without administration of intravenous contrast material. Individualized dose optimization techniques were used for this CT. COMPARISON: mri Oct 27 2017 7:14am FINDINGS: Normal soft tissue structures. Normal calvarium. Normal size ventricles and extra-axial spaces for the patient's age. Normal white matter tracts of the cerebral hemispheres. Normal basal ganglia and thalami. Normal brainstem. Normal cerebellum. There is no intracranial hemorrhage. There are no findings of an acute ischemic infarction. Normal visualized paranasal sinuses. CT/Brain/Head without Contrast IMPRESSION: Normal unenhanced CT scan of the brain. Electronically Signed: Casper Loving MD at 19:00 EDT , Service support ,
--- NOTE | 2017-12-31 18:21 | RAD_ITS ---
STUDY: X-RAY CHEST REASON FOR EXAM: Male, 57 years old. Left arm numbness, history of stroke 2 months ago TECHNIQUE: Single AP portable view of the chest. COMPARISON: None. FINDINGS: equipment monitor phototypesetting leads are present. The lungs are clear and expanded. There is no demonstrated pleural abnormality. Normal size heart. Normal mediastinum and soila. Normal visualized pulmonary arteries. Normal visualized aortic arch and descending thoracic aorta. Normal visualized thoracic spine. Normal visualized ribs, clavicles, and shoulders. There is no demonstrated abnormality of the visualized soft tissue structures of the upper abdomen. RAD/Chest 1 View IMPRESSION: Normal x-ray examination of the chest. Electronically Signed: Sabino Dos Snatos MD at 19:12 EDT , Service support ,
--- NOTE | 2017-12-31 18:21 | EKG12_ITS ---
Test Reason : Blood Pressure : / mmHG Vent. Rate : 071 BPM Atrial Rate : 071 BPM P-R Int : 148 ms QRS Dur : 088 ms QT Int : 378 ms P-R-T Axes : 055 059 027 degrees QTc Int : 410 ms Normal sinus rhythm Normal ECG Confirmed by FAB GONZALEZ, SORAYA ([id number]), photographic editor LINDA HAMILTON ([id number]) on 01/02/2018 1:13:17 PM Referred By: KAELA Confirmed By:SORAYA SANON MD
[2017-12-31 18:24] VITALS: PULSE 66; RESP 18; O2SAT 96
[2017-12-31 18:31] LABS: Absolute Lymphocyte Count 1.89 X10^3/ul (0.83-4.51); Absolute Neutrophil Count 3.1 X10^3/uL (2.0-7.7); Basophil# 0.02 X10^3/uL; Basophil% 0.3 % (0-1); Eosinophil# 0.22 X10^3/uL; Eosinophils% 3.8 % (0-5); Hematocrit 39.3 % (40-54); Hemoglobin 12.8 g/dl (13.0-16.5); Lymphocyte # 1.89 X10^3/ul (4.0); Mean Corp Hgb Conc 32.6 g/gl (32-36); Mean Corpuscular Hgb 28.8 pg (27.0-32.0); Mean Corpuscular Volume 88.3 fL (80-94); Mean Platelet Vol. 10.3 fl (6.2-12.0); Monocyte# 0.51 X10^3/uL; Monocyte% 8.9 % (0-10); Neutrophil # 3.08 X10^3/uL (2.7-7.7); Neutrophil % 53.8 % (47-70); Platelet Count 235 K/mm3 (150-450); RBC Distribution Width CV 12.8 % (11.6-14.6); RBC Distribution Width SD 41.2 fl (35.1-43.9); Red Blood Count 4.45 M/mm3 (4.6-6.2); White Blood Count 5.7 K/mm3 (4.4-11.0)
[2017-12-31 18:32] LABS: POSITIVE COUNT NO; POSITIVE DIFFERENTIAL NO; POSITIVE MORPHOLOGY NO
[2017-12-31 18:34] LABS: Prothrombin Time (Protime)PT. 12.9 SECONDS (11.7-14.9)
[2017-12-31 18:35] LABS: Partial Thromboplast Time 30.9 Seconds (24.1-36.2)
[2017-12-31 18:42] LABS: Anion Gap 3 (5-15); BUN 17 mg/dL (7-18); BUN/Creat Ratio 16.2 RATIO (10-20); Calcium,Total 8.6 mg/dL (8.5-10.1); Chloride 109 mmol/L (98-107); Creatinine, Serum 1.05 mg/dL (0.70-1.30); EST Glomerular Filtration Rate 77 mL/min (>60); Est Glom Filt Rate - Afr Amer 93 mL/min (>60); Estimated Creatinine Clearance 78.21 ml/min; Glucose 122 mg/dL (74-106); Sodium Level 141 mmol/L (136-145)
--- NOTE | 2017-12-31 19:12 | ED.DCSUM_ITS ---
- ER Visit Summary Date of Service: 12/31/17 Chief Complaint: I feel like I was having a stroke History of Present Illness: The patient is a 57 M who presents with strokelike symptoms. He does have a history of prior stroke. He also has a patent foramen ovale. He is currently on aspirin and a statin no other medications. He was scheduled to see neurology for follow-up tomorrow. Today about 30 minutes before presentation he developed left facial droop, slurred speech, left arm and leg weakness. This had resolved prior to my evaluation. Currently he is asymptomatic. He denies recent illness. No fevers vomiting diarrhea chest pain shortness of breath or headache. Physical Examination: Afebrile vitals are normal NIH stroke scale is 0 normal strength normal sensation no ataxia no focal or lateralizing neurological deficits Moist mucous membranes Heart regular rate and rhythm Lungs are clear Abdomen soft Test Results: EKG shows sinus rhythm at a rate of 71 with no acute ischemic changes. Chest x-ray is normal as read by me. CT the head is normal. Labs unremarkable. Emergency Department Course and Treatment: Patient was asymptomatic with a normal neurological exam at the time of my evaluation. Patient will need admitted for further workup, likely repeat MRI, neurology consultation. Treatment Plan: [] Disposition: Admit Impression: Transient ischemic attack This note was generated with [employer] dictation software. It may contain incorrect words, spelling, and punctuation that were not noted in review of the chart prior to signing ED Disposition - Plan for ED Patient: Chief Complaint: Neuro S/Sx Referrals: Hawk Holley MD [Primary Care Provider] -
[2017-12-31 19:27] VITALS: BP 120/76; PULSE 57; RESP 14; O2SAT 98
--- NOTE | 2017-12-31 20:32 | NURSING ---
2024 Called [facility] charge nurseirena to send patient to the floor.
--- NOTE | 2017-12-31 21:04 | PCM.HP.STD ---
Problem List (1) TIA (transient ischemic attack) Status: Acute (2) Dilated aortic root Status: Chronic (3) Cryptogenic stroke Status: Acute Comment: Subacute cortical based ischemic infarct involving the left parahippocampus/hippocampus and smaller portions of the left lingual gyrus. (4) Patent foramen ovale Status: Chronic History of Present Illness Date of Admission: 12/31/17 Chief Complaint: TIA The patient is a 57 year old male w/ h/o CVA and patent foramen ovale admitted for TIA. He had left sided weakness while driving. Symptoms lasted for a few minutes. Symptoms started a 1 hours prior to admission. He has slurred speech and left facial droop and left arm and leg weakness. He was still able to drive and asked his girlfriend to take him to the hospital. Nothing appeared to make his weakness better or worse. Past Medical History Past Medical History (Chronic Problems): Chronic Problems (Last Reviewed 01/01/18 @ 04:17 by Xavier Martel MD) Dilated aortic root (Chronic) Patent foramen ovale (Chronic) Medical History: Medical History (Last Reviewed 01/01/18 @ 04:17 by Xavier Martel MD) Dilated aortic root (Chronic) I77.810 Cryptogenic stroke (Acute) I63.9 Subacute cortical based ischemic infarct involving the left parahippocampus/hippocampus and smaller portions of the left lingual gyrus. Patent foramen ovale (Chronic) Q21.1 GERD (gastroesophageal reflux disease) K21.9 Allergies No Known Allergies Allergy (Verified 11/07/17 13:50) Home Medications: Ambulatory Orders Medication Instructions Recorded Aspirin [Aspirin, Baby] 81 mg PO DAILY@0800 #90 tab.chew 10/27/17 atorvastatin 80 mg tablet 40 mg PO DAILY@2200 tab 11/07/17 Surgical History: Surgical History (Last Reviewed 01/01/18 @ 04:17 by Xavier Martel MD) H/O left inguinal hernia repair Z98.890, Z87.19 Psychiatric History: No pertinent psych hx Smoking Status: Never smoker - *Family History Paternal Family History: Family History (Last Reviewed 12/15/17 @ 09:08 by Malorie Salvador) Father Heart disease Myocardial infarction History Items: Heart Disease Review of Systems Constitutional: Denies: Chills, Fever, Weight Change HEENT: Denies: Head Aches, Sinus Congestion, Sinus Drainage Cardiovascular: Denies: Chest Pain, Palpitations Respiratory: Denies: Cough, Shortness of breath at rest, Sputum production Gastrointestinal: Denies: Abdominal Pain, Nausea, Vomiting Genitourinary: Denies: Dysuria Musculoskeletal: Denies: Joint Pain, Joint Tenderness Skin: Denies: Rash, Wounds Neurological: Reports: Slurred speech, Focal weakness. Denies: Numbness, Tingling Psychiatric: Denies: Anxiety, Depression, Homicidal Ideations, Suicidal Ideations Hematologic/ Lymphatic: Denies: Easy Bruising, Easy Bleeding VTE Information - Inpt Only VTE Present on Admission: No VTE Mechan Device Prophylaxis: SCD's VTE Pharm Prophylaxis ordered?: Yes Patient Problems: Active and Suspected Problems (Last Reviewed 01/01/18 @ 04:17 by Xavier Martel MD) TIA (transient ischemic attack) (Acute) - Physical Exam General: Alert, Oriented x3, Cooperative HEENT: Atraumatic, PERRLA, EOMI, Normocephalic Neck: Supple, No JVD, Negative Carotid Bruits Lungs: Clear to auscultation, Normal air movement Cardiovascular: Regular rate, No murmurs Abdomen: Bowel Sounds Present, Soft, Non Tender Extremities: No edema, Capillary Refill Less than 3 Seconds Skin: No rashes, No breakdown Musculoskeletal: No Tenderness to Palpation of Joints or Extremities Neurological: Cranial nerves II-XII grossly intact Psych/Mental Status: Normal Affect, Appropriate Vital Signs Temp Pulse Resp BP Pulse Ox 98.1 F 57 L 14 120/76 98 12/31/17 17:52 12/31/17 19:27 12/31/17 19:27 12/31/17 19:27 12/31/17 19:27 Assessment/Plan All Active Problems (Last Reviewed 01/01/18 @ 04:17 by Xavier Martel MD) TIA (transient ischemic attack) (Acute) Cryptogenic stroke (Acute) 57 year old male w/ h/o CVA and patent foramen ovale admitted for TIA. 1) TIA: CT head negative. Will get ECHO, carotid US and MRI. C/w ASA and statin Monitor. 2) Lipidemia: C/w statin. FLP pending. 3) Prophylaxis: SCD / Heparin.
--- NOTE | 2017-12-31 21:07 | CDU_ITS ---
Reason For Study: TIA Rt. Velocities/BP Lt. Velocities/BP Prox CCA 99/18 cm/sec. Prox CCA 104/14 cm/sec. Mid CCA 97/23 cm/sec. Mid CCA 100/22 cm/sec. Dist CCA 69/21 cm/sec. Dist CCA 71/19 cm/sec. Prox ICA 82/26 cm/sec. Prox ICA 83/30 cm/sec. Mid ICA 84/31 cm/sec. Mid ICA 89/29 cm/sec. Dist ICA 75/28 cm/sec. Dist ICA 56/17 cm/sec. Rt. ICA/CCA = .9. Lt. ICA/CCA = .9. Prox ECA 112/18 cm/sec. Prox ECA 92/9 cm/sec. Rt. Vert. 60/17 cm/sec. Lt. Vert. 35/11 cm/sec. Right Extracranial There is intimal thickening but no significant atherosclerotic plaque noted in the right common carotid artery. There is intimal thickening but no significant atherosclerotic plaque noted in the right internal carotid artery. There is intimal thickening but no significant atherosclerotic plaque noted in the right external carotid artery. Antegrade flow is noted in the right vertebral artery. There is homogeneous, smooth atherosclerotic plaque noted in the right bulb. Left Extracranial There is intimal thickening but no significant atherosclerotic plaque noted in the left common carotid artery. There is intimal thickening but no significant atherosclerotic plaque noted in the left internal carotid artery. There is intimal thickening but no significant atherosclerotic plaque noted in the left external carotid artery. Antegrade flow is noted in the left vertebral artery. There is intimal thickening but no significant atherosclerotic plaque noted in the left bulb. Procedure Carotid Duplex [id number]. Exam performed portable in patient room. Interpretation Summary Mild (<50%) stenosis right extracranial internal carotid. Mild (<50%) stenosis left extracranial internal carotid. Flow within the vertebral arteries is antegrade bilaterally. Ordering Physician: Xavier Martel Referring Physician: PHI CALZADA Performed By: Gracie Cohen, SEFERINO, RVT
[2017-12-31 21:08] VITALS: BMI 26.2
[2017-12-31 21:24] VITALS: BMI 26.3
[2017-12-31 21:34] VITALS: BP 130/65; PULSE 65; RESP 16; TEMP 36.6; O2SAT 99
[2017-12-31 21:43] LABS: Thyroid Stim Hormone (TSH) 1.27 uIU/mL (0.358-3.74)
[2017-12-31] MEDS: Heparin Injection (Vial) 5,000 UNIT/ML VIAL 5000 UNIT SC (23:02)
[2017-12-31] MEDS: 0.9% Normal Saline 1,000 ML 100 ML IV (23:02)
[2017-12-31] MEDS: Atorvastatin Calcium 40 MG Tablet PO (23:02)
[2017-12-31 23:14] VITALS: PULSE 67
[2017-12-31 23:30] VITALS: BP 121/62; PULSE 62; RESP 16; TEMP 36.8; O2SAT 98
[2018-01-01] VITALS (12 sets, daily range): BP systolic 104–139; BP diastolic 54–71; PULSE 54–73; RESP 16–18; TEMP 36.7–37; O2SAT 97–99; BMI 26.2
[2018-01-01 02:44] LABS: Amphetamine Urine VISTA NEGATIVE (<1000 ng/mL); Barbiturate Urine VISTA NEGATIVE (< 200 ng/mL); Benzodiazepine Urine VISTA NEGATIVE (< 200 ng/mL); Cocaine Urine VISTA NEGATIVE (< 300 ng/mL); Ecstacy Urine VISTA NEGATIVE (< 500 ng/mL); Methadone Urine VISTA NEGATIVE (< 300 ng/mL); PCP Urine VISTA NEGATIVE (< 25 ng/mL); THC Urine VISTA NEGATIVE (< 50 ng/mL); Vista UDS pH Range 7
[2018-01-01] MEDS: Heparin Injection (Vial) 5,000 UNIT/ML VIAL 5000 UNIT SC ×3 (06:50→22:06)
[2018-01-01 07:03] LABS: International Normalized Ratio 1.1; Prothrombin Time (Protime)PT. 13.8 SECONDS (11.7-14.9)
[2018-01-01 07:19] LABS: Anion Gap 6 (5-15); BUN 13 mg/dL (7-18); BUN/Creat Ratio 14.2 RATIO (10-20); Chloride 112 mmol/L (98-107); Cholesterol 65 mg/dL (200); Creatinine, Serum 0.92 mg/dL (0.70-1.30); EST Glomerular Filtration Rate 90 mL/min (>60); Est Glom Filt Rate - Afr Amer 108 mL/min (>60); Estimated Creatinine Clearance 89.27 ml/min; Glucose 105 mg/dL (74-106); High Density Lipoprotein 33 mg/dL; Potassium 4.3 mmol/L (3.5-5.1); Sodium Level 146 mmol/L (136-145); Triglycerides 57 mg/dL; Very Low Density Lipoprotein 11 mg/dL (5-40)
--- NOTE | 2018-01-01 08:00 | MRI_ITS ---
STUDY: MRI BRAIN WITHOUT CONTRAST REASON FOR EXAM: Male, 57 years old. Numbness/tingling, lt sided weakness, slurred speech TECHNIQUE: Standardized multiplanar fat and water weighted pulse sequences were obtained. COMPARISON: None. FINDINGS: Normal size of the ventricles and extra-axial spaces for the patient's age. Normal white matter tracts of the supratentorial brain. There is no evidence for recent intracranial ischemia or other cause of cytotoxic edema on diffusion weighted imaging (DWI). Normal bilateral basal ganglia. Normal thalami. There is no extra-axial fluid accumulation. Normal flow voids within the major intracranial circulation suggesting patency by spin echo criteria. Normal sella turcica, pituitary gland, infundibular stalk, optic chiasm and hypothalamus. Normal tectal plate and pineal gland. Normal midbrain, lonnie and medulla. Normal cerebellum. Normal basal cisterns. Normal bilateral temporal bones. Normal bilateral internal auditory canals. No demonstrated orbital abnormality, within the constraints of a routine brain study. There is mucoperiosteal inflammatory disease of the paranasal sinuses consistent with mild chronic sinusitis. There is a mucosal retention cyst in the left maxillary sinus measures 1.6 cm. Normal calvarium and skull base. Normal visualized soft tissue structures. Normal visualized upper cervical spine. MRI/Brain without Contrast IMPRESSION: There is a mucosal retention cyst in the left maxillary sinus measures 1.6 cm. There is no evidence for recent intracranial ischemia or other cause of cytotoxic edema on diffusion weighted imaging (DWI). Electronically Signed: Lavon Shukla MD at 12:19 EDT Tel , Service support ,
[2018-01-01] MEDS: Aspirin 81 MG TAB.CHEW PO (10:26)
--- NOTE | 2018-01-01 11:27 | PCM.CONS.GEN ---
Reason for Consult Date of Consultation: 01/01/18 Reason for Consultation: LEFT PARESTHESIAS History of Present Illness: The patient is a 57 year old M admitted for left paresthesias, had a cva 2mo ago on asa and lipitor. reports no triggering event. sx lasted one min then resolved, feels normal now. symptoms occurred while driving PER ADMIT H&P:The patient is a 57 year old male w/ h/o CVA and patent foramen ovale admitted for TIA. He had left sided weakness while driving. Symptoms lasted for a few minutes. Symptoms started a 1 hours prior to admission. He has slurred speech and left facial droop and left arm and leg weakness. He was still able to drive and asked his girlfriend to take him to the hospital. Nothing appeared to make his weakness better or worse. Past Medical History Past Medical History (Chronic Problems): Chronic Problems (Last Reviewed 01/01/18 @ 04:17 by Xavier Martel MD) Dilated aortic root (Chronic) Patent foramen ovale (Chronic) Medical History: Medical History (Last Reviewed 01/01/18 @ 11:29 by Maurice Corona MD) Dilated aortic root (Chronic) I77.810 Cryptogenic stroke (Acute) I63.9 Subacute cortical based ischemic infarct involving the left parahippocampus/hippocampus and smaller portions of the left lingual gyrus. Patent foramen ovale (Chronic) Q21.1 GERD (gastroesophageal reflux disease) K21.9 Allergies No Known Allergies Allergy (Verified 11/07/17 13:50) Home Medications: Ambulatory Orders Medication Instructions Recorded Aspirin [Aspirin, Baby] 81 mg PO DAILY@0800 #90 tab.chew 10/27/17 atorvastatin 80 mg tablet 40 mg PO DAILY@2200 tab 11/07/17 Surgical History: Surgical History (Last Reviewed 01/01/18 @ 11:29 by Maurice Corona MD) H/O left inguinal hernia repair Z98.890, Z87.19 Psychiatric History: No pertinent psych hx Smoking Status: Never smoker Tobacco Use: Non-smoker - *Family History Paternal Family History: Family History (Last Reviewed 01/01/18 @ 11:29 by Maurice Corona MD) Father Heart disease Myocardial infarction History Items: Heart Disease Review of Systems Constitutional: Denies: Chills, Fever, Weight Change HEENT: Denies: Head Aches, Sinus Congestion, Sinus Drainage Cardiovascular: Denies: Chest Pain, Palpitations Respiratory: Denies: Cough, Shortness of breath at rest, Sputum production Gastrointestinal: Denies: Abdominal Pain, Nausea, Vomiting Genitourinary: Denies: Dysuria Musculoskeletal: Denies: Joint Pain, Joint Tenderness Skin: Denies: Rash, Wounds Neurological: Denies: Numbness, Tingling, Focal weakness Psychiatric: Denies: Anxiety, Depression, Homicidal Ideations, Suicidal Ideations Hematologic/ Lymphatic: Denies: Easy Bruising, Easy Bleeding Patient Problems: Active and Suspected Problems (Last Reviewed 01/01/18 @ 04:17 by Xavier Martel MD) TIA (transient ischemic attack) (Acute) - Physical Exam General: Alert, Oriented x3, Cooperative HEENT: Atraumatic, PERRLA, EOMI, Normocephalic Neck: Supple, No JVD, Negative Carotid Bruits Lungs: Clear to auscultation, Normal air movement Cardiovascular: Regular rate, No murmurs Abdomen: Bowel Sounds Present, Soft, Non Tender Extremities: No edema, Capillary Refill Less than 3 Seconds Skin: No rashes, No breakdown Musculoskeletal: No Tenderness to Palpation of Joints or Extremities Neurological: Cranial nerves II-XII grossly intact Psych/Mental Status: Normal Affect, Appropriate Vital Signs Temp Pulse Resp BP Pulse Ox 36.9 C 73 16 122/70 H 98 01/01/18 10:52 01/01/18 10:52 01/01/18 10:52 01/01/18 10:52 01/01/18 10:52 Oxygen Delivery Method Room Air Weight: 83 kg Body Mass Index (BMI) 26.2 Intake and Output for Last 24 Hours 12/30/17 12/31/17 01/01/18 23:59 23:59 23:59 Intake Total 863 / 863 Balance 863 / 863 Laboratory Tests Past 24 Hrs 12/31/17 01/01/18 01/01/18 21:15 00:25 01:10 PT INR Sodium Potassium Chloride Carbon Dioxide Anion Gap BUN Creatinine Estim Creat Clear Calc Est GFR (MDRD) Af Amer Est GFR (MDRD) Non-Af BUN/Creatinine Ratio Glucose Calcium Troponin I < 0.015 < 0.015 Triglycerides Cholesterol LDL Cholesterol VLDL Cholesterol HDL Cholesterol TSH 1.27 Urine Opiates Screen NEGATIVE Urine Methadone Screen NEGATIVE Ur Barbiturates Screen NEGATIVE Ur Phencyclidine Scrn NEGATIVE Ur Amphetamines Screen NEGATIVE U Methamphetamin-MDMA NEGATIVE U Benzodiazepines Scrn NEGATIVE Urine Cocaine Screen NEGATIVE U Cannabinoids Screen NEGATIVE Ur Drug Screen Comment 01/01/18 01/01/18 06:35 06:35 PT 13.8 INR 1.1 Sodium 146 H Potassium 4.3 Chloride 112 H Carbon Dioxide 28.0 Anion Gap 6 BUN 13 Creatinine 0.92 Estim Creat Clear Calc 89.27 Est GFR (MDRD) Af Amer 108 Est GFR (MDRD) Non-Af 90 BUN/Creatinine Ratio 14.2 Glucose 105 Calcium 8.0 L Troponin I Triglycerides 57 Cholesterol 65 LDL Cholesterol 21 VLDL Cholesterol 11 HDL Cholesterol 33 L TSH Urine Opiates Screen Urine Methadone Screen Ur Barbiturates Screen Ur Phencyclidine Scrn Ur Amphetamines Screen U Methamphetamin-MDMA U Benzodiazepines Scrn Urine Cocaine Screen U Cannabinoids Screen Ur Drug Screen Comment Current Home Med List Medication Instructions Recorded Confirmed Type Aspirin [Aspirin, Baby] 81 mg PO DAILY@0800 #90 tab.chew 10/27/17 12/31/17 Rx atorvastatin 80 mg tablet 40 mg PO DAILY@2200 tab 11/07/17 12/31/17 History Current Medications Generic Name Dose Route Start Last Admin Trade Name Freq PRN Reason Stop Dose Admin Aspirin 81 mg 01/01/18 08:00 01/01/18 10:26 Aspirin, Baby PO 81 mg DAILY@0800 ESME Administration Atorvastatin Calcium 40 mg 12/31/17 22:00 12/31/17 23:02 Lipitor PO 40 mg DAILY@2200 ESME Administration Heparin Sodium (Porcine) 5,000 unit 12/31/17 22:00 01/01/18 06:50 Heparin Na SC 5,000 u Q8 ESME Administration Sodium Chloride 1,000 mls @ 100 mls/hr 12/31/17 21:07 12/31/17 23:02 IV 100 mls/hr .Q10H ESME Administration Labetalol HCl 10 mg 12/31/17 21:07 Trandate IV 01/01/18 21:08 Q10M PRN MAINTAIN SBP GOALS Magnesium Hydroxide 30 ml 12/31/17 21:07 Milk Of Magnesia PO DAILY PRN PRN Constipation Nutritional Formula (Lactose Free) 120 ml 01/01/18 10:00 01/01/18 10:28 Ensure Enlive PO 120 ml 4X/DAY ESME Administration Sodium Chloride 5 - 30 ml 12/31/17 22:52 IV UD PRN SALINE FLUSH mri reviewed, no acute Assessment/Plan All Active Problems (Last Reviewed 01/01/18 @ 04:17 by Xavier Martel MD) TIA (transient ischemic attack) (Acute) Cryptogenic stroke (Acute) mri neg, tia less likely, possible partial sz eeg start
--- NOTE | 2018-01-01 12:48 | PCM.PROGNOTE ---
Patient Problems: Active and Suspected Problems (Last Reviewed 01/01/18 @ 11:29 by Maurice Corona MD) TIA (transient ischemic attack) (Suspected) Subjective: Chief complaint: Follow-up after admission for strokelike symptoms, admitted for probable TIA versus seizure. Patient seen and examined. No acute events overnight. Today, he do not edema symptoms. He has no more left facial droop, speech is normal. He mentioned that weakness in the left left side resolved since yesterday after he came to the emergency room. His vital signs stable. Blood pressure under control. - Physical Exam General: Alert, Oriented x3, Cooperative, No apparent distress HEENT: Atraumatic, PERRLA, EOMI, Normocephalic Oral: Moist Mucosa, No Gingival or Mucosal Lesions/ Ulcerations Neck: Supple, No JVD, Negative Carotid Bruits, Trachea Midline, Thyroid Normal Size and Texture Lungs: Clear to auscultation, No rhonchi, No wheeze, No rales, Diminished Cardiovascular: Regular rate, Regular Rhythm, Normal S1, Normal S2, PMI Normal Abdomen: Bowel Sounds Present, Soft, Non Tender, Non-Distended, No Hepato-splenomegaly Extremities: No clubbing, No cyanosis, No edema Skin: No rashes, No breakdown Lymphatic: No Cervical, Supraclavicular, or Inguinal Adenopathy Neurological: Cranial nerves II-XII grossly intact, Motor Exam 5/5 strength throughout Psych/Mental Status: Normal Affect, Appropriate, Alert and oriented to time, place, person, mood and affect Vital Signs Temp Pulse Resp BP Pulse Ox 98.4 F 63 16 122/70 H 98 01/01/18 10:52 01/01/18 11:21 01/01/18 10:52 01/01/18 10:52 01/01/18 10:52 Oxygen Delivery Method Room Air Weight: 182 lb 15.739 oz Body Mass Index (BMI) 26.2 Intake and Output for Last 24 Hours 12/30/17 12/31/17 01/01/18 23:59 23:59 23:59 Intake Total 863 / 863 Balance 863 / 863 Laboratory Tests Past 24 Hrs 12/31/17 01/01/18 01/01/18 21:15 00:25 01:10 PT INR Sodium Potassium Chloride Carbon Dioxide Anion Gap BUN Creatinine Estim Creat Clear Calc Est GFR (MDRD) Af Amer Est GFR (MDRD) Non-Af BUN/Creatinine Ratio Glucose Calcium Troponin I < 0.015 < 0.015 Triglycerides Cholesterol LDL Cholesterol VLDL Cholesterol HDL Cholesterol TSH 1.27 Urine Opiates Screen NEGATIVE Urine Methadone Screen NEGATIVE Ur Barbiturates Screen NEGATIVE Ur Phencyclidine Scrn NEGATIVE Ur Amphetamines Screen NEGATIVE U Methamphetamin-MDMA NEGATIVE U Benzodiazepines Scrn NEGATIVE Urine Cocaine Screen NEGATIVE U Cannabinoids Screen NEGATIVE Ur Drug Screen Comment 01/01/18 01/01/18 06:35 06:35 PT 13.8 INR 1.1 Sodium 146 H Potassium 4.3 Chloride 112 H Carbon Dioxide 28.0 Anion Gap 6 BUN 13 Creatinine 0.92 Estim Creat Clear Calc 89.27 Est GFR (MDRD) Af Amer 108 Est GFR (MDRD) Non-Af 90 BUN/Creatinine Ratio 14.2 Glucose 105 Calcium 8.0 L Troponin I Triglycerides 57 Cholesterol 65 LDL Cholesterol 21 VLDL Cholesterol 11 HDL Cholesterol 33 L TSH Urine Opiates Screen Urine Methadone Screen Ur Barbiturates Screen Ur Phencyclidine Scrn Ur Amphetamines Screen U Methamphetamin-MDMA U Benzodiazepines Scrn Urine Cocaine Screen U Cannabinoids Screen Ur Drug Screen Comment Clinical Impression(s) from Imaging Studies Brain CT 12/31/17 18:20 IMPRESSION: Normal unenhanced CT scan of the brain. Electronically Signed: Casper Loving MD at 19:00 EDT , Service support , Chest X-Ray 12/31/17 18:21 IMPRESSION: Normal x-ray examination of the chest. Electronically Signed: Sabino Dos Santos MD at 19:12 EDT , Service support , Brain MRI 01/01/18 08:00 IMPRESSION: There is a mucosal retention cyst in the left maxillary sinus measures 1.6 cm. There is no evidence for recent intracranial ischemia or other cause of cytotoxic edema on diffusion weighted imaging (DWI). Electronically Signed: Lavon Shukla MD at 12:19 EDT Tel , Service support , Medical Necessity - Tobacco Use Smoking Status: Never smoker Tobacco Use: Non-smoker Assessment/Plan This is a 57 years old male patient presented to the emergency room because of left-sided facial droop, slurred speech, left-sided weakness in context of history of cryptogenic stroke and he was admitted for evaluation. #1 left-sided facial droop/slurred speech/left-sided weakness: Probable TIA versus seizure. CT scan brain without acute findings. MRI brain showed no acute infarction or hemorrhage. His vital signs are stable. His EKG revealed normal sinus rhythm without evidence of acute ischemic changes or cardiac arrhythmias. He is on aspirin and statins. 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 He was discharged on aspirin and statins. At this time, he has normal symptoms. Neurology consulted, recommended to start patient on Keppra and recommended EEG. 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 He has been on aspirin and statins. After discussion with neurology, no indication to start patient on anticoagulation at this time. Plan as above. #3 DVT prophylaxis: Subcu heparin. This note was generated with [employer] dictation software. It may contain incorrect words, spelling, and punctuation that were not noted in checking the note before signing. Code Visit OBSV E&M: 73768 Subsequent observation care L2
--- NOTE | 2018-01-01 14:38 | CHAPLAIN ---
Type of Pastoral Visit _x__ Initial Visit ___ Follow-up Visit ___ On-call Visit ___ General Patient Visit ___ Spiritual Assessment ___ Family Conference ___ Bereavement ___ Rapid Response ___ Code Blue ___ Other (describe below) Pastoral Care Referral From _x__ Patient _x__ Family ___ Nurse ___ Physician ___ Heel Builder ___ Paint Stripper ___ Other (describe below) Sacrament/Intervention _x__ Active listening ___ Anointing ___ Episcopalian ___ Bereavement ___ Communion ___ Jinny exploration ___ _x__ Life review _x__ Prayer ___ Reconciliation ___ Sacrament of Sick _x__ Supportive presence ___ Wedding ___ Other (describe below) Pastoral Comments this patient was seen at last admission; pt previously expressed thankfulness for that visit; offered support and heard about latest developments in health; pt and spouse express concerns about finding out reasons for symptoms and how this may impact the future; pt and spouse also state that this will impact his means of employment; pt welcoming of prayer and personal support; spouse admits to having some anxiety
[2018-01-01] MEDS: Atorvastatin Calcium 40 MG Tablet PO (22:06)
[2018-01-01] MEDS: levETIRAcetam 500 MG Tablet PO (22:07)
[2018-01-02 00:30] VITALS: BP 110/55; PULSE 60; RESP 16; TEMP 36.8; O2SAT 97
[2018-01-02 03:00] VITALS: PULSE 52
[2018-01-02 04:30] VITALS: BP 91/46; PULSE 51; RESP 16; TEMP 36.6; O2SAT 96
[2018-01-02 07:12] VITALS: PULSE 51
--- NOTE | 2018-01-02 08:12 | DCINST_ITS ---
You will use the following diet at home:: Regular Your food should be the consistency of: Regular Discharge Activity: Return to Normal Activity Weight Bearing Status: Full weight bearing Call your doctor if you observe: Fever of 101 or Higher, Shortness of breath, Dizziness, Fainting spells, Chest pain, Increased palpitations (irregular heartbeat), Uncontrolled pain Allergies/Adverse Reactions: Allergies No Known Allergies Allergy (Verified 11/07/17 13:50) Medications to take at Discharge Aspirin [Aspirin, Baby] 81 mg PO DAILY@0800 #90 tab.chew 10/27/17 atorvastatin 80 mg tablet 40 mg PO DAILY@2200 tab 11/07/17 levETIRAcetam tablet [Keppra tablet] 500 mg PO BID #90 tab 01/02/18 The following prescriptions were given: levETIRAcetam tablet [Keppra tablet] 500 mg PO BID #90 tab Primary Care Physician: Hawk Holley MD [Primary Care Provider] - Please follow up with your Primary Care Physician in: 2 week.s Test Results: Test results from this visit will be discussed in further detail at your follow- up appointment, if applicable. Please Follow Up With: Maurice Corona MD When: call his office.
[2018-01-02 08:30] VITALS: BP 110/66; PULSE 57; RESP 16; TEMP 36.6; O2SAT 98
[2018-01-02] MEDS: Aspirin 81 MG TAB.CHEW PO (08:58)
[2018-01-02] MEDS: levETIRAcetam 500 MG Tablet PO (08:59)
[2018-01-02 09:52] VITALS: BMI 26.2
--- NOTE | 2018-01-02 11:50 | EEG ---
- Electroencephalogram This is an 18 channel electroencephalogram performed on this 57-year-old male with an episode of change in mental status. Has a remote history of stroke. 18 channel electron esophagram is performed utilizing the International 10-20 electrode placement protocol as well as EKG reference leads, photic stimulation and hyperventilation. Background activity is 9 Hz symmetrically in the posterior leads which attenuates with eye opening. Hyperventilation is performed for 3 minutes with good effort with no lateralizing or epileptiform changes. The patient did drowse briefly during the recording with no lateralizing or epileptiform changes. Photic stimulation generates a normal symmetric driving response in the posterior leads and KG reference leads are normal. Impression: Normal awake and asleep electroencephalogram.
--- NOTE | 2018-01-02 11:51 | PCM.PN.NEU ---
Subjective: Patient awake and alert, tolerating Keppra. No further spells. present and agrees. 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 - Physical Exam General: Alert, Oriented x3, Cooperative, No apparent distress Neurological: Cranial nerves II-XII grossly intact, Deep Tendon Reflexes 2+/4 and Symmetrical, Neuro grossly intact, Motor Exam 5/5 strength throughout, Coordination normal, Gait narrow based and stable Psych/Mental Status: Normal Affect Vital Signs Temp Pulse Resp BP Pulse Ox 36.6 C 57 L 16 110/66 98 01/02/18 08:30 01/02/18 08:30 01/02/18 08:30 01/02/18 08:30 01/02/18 08:30 Oxygen Delivery Method Room Air Weight: 83 kg Body Mass Index (BMI) 26.2 Intake and Output for Last 24 Hours 12/31/17 01/01/18 01/02/18 23:59 23:59 23:59 Intake Total 2931 / 2931 Balance 2931 / 2931 EEG normal MRI is normal by report Medical Necessity - Tobacco Use Smoking Status: Never smoker Tobacco Use: Non-smoker Assessment/Plan mri neg, tia less likely, possible partial sz The patient is asymptomatic at this point and can be discharged to home. He is tolerating Keppra which I would continue. The cause of his event remains unclear but my opinion it is reasonable and safe to continue driving without restrictions as long as he has compliant with anticonvulsants which he appears to be. I recommend that he discuss his work related issues with his superiors at work although again I do not see any reason at this point to restrict his driving.
--- NOTE | 2018-01-02 13:55 | PCM.DC.SUM ---
Discharge Date and Diagnosis Date of Admission: 12/31/17 Date of Discharge: 01/02/18 - Primary Discharge Diagnosis Possible partial seizure. - Secondary Discharge Diagnosis Chronic Problems (Last Updated 01/01/18 @ 12:50 by Mercedes Linder MD) Dilated aortic root (Chronic) Cryptogenic stroke (Chronic) Subacute cortical based ischemic infarct involving the left parahippocampus/hippocampus and smaller portions of the left lingual gyrus. Patent foramen ovale (Chronic) Hospital Course and Treatment Imaging Results: Clinical Impression(s) from Imaging Studies Brain CT 12/31/17 18:20 IMPRESSION: Normal unenhanced CT scan of the brain. Electronically Signed: Casper Loving MD at 19:00 EDT , Service support , Chest X-Ray 12/31/17 18:21 IMPRESSION: Normal x-ray examination of the chest. Electronically Signed: Sabino Dos Santos MD at 19:12 EDT , Service support , Brain MRI 01/01/18 08:00 IMPRESSION: There is a mucosal retention cyst in the left maxillary sinus measures 1.6 cm. There is no evidence for recent intracranial ischemia or other cause of cytotoxic edema on diffusion weighted imaging (DWI). Electronically Signed: Lavon Shukla MD at 12:19 EDT Tel , Service support , Dr. Corona, neurology. Procedures: EKG Summary of Care Provided: Patient seen and examined on the day of discharge and appeared to be stable to be discharged home. He denies any more complaints. Weakness and numbness in the left side resolved since admission. His vital signs are stable. - Physical Exam General: Alert, Oriented x3, Cooperative, No apparent distress. HEENT: Atraumatic, PERRLA, EOMI. Neck: Supple, No JVD, Negative Carotid Bruits, Trachea Midline, Thyroid Normal. Lungs: Clear to auscultation, Normal air movement, No rhonchi, No wheeze, No rales. Cardiovascular: Regular rate, Regular Rhythm, Normal S1, Normal S2, PMI Normal. Abdomen: Bowel Sounds Present, Soft, Non Tender, Non-Distended, No Hepato-splenomegaly. Extremities: No clubbing, No cyanosis, No edema Skin: No rashes, No breakdown Neurological: Neuro grossly intact Vital Signs are stable. Hospital course: The patient is a 57 year old M admitted because of an episode of left-sided facial droop, slurred speech and left-sided body weakness in context of recent history of cryptogenic stroke due to patent foramen ovale. Initially, there was a concern that he may have a new stroke. CT scan brain showed no acute findings. Neurology consulted and recommended that this may be due to partial seizure. MRI brain was performed and showed no evidence of acute infarction or hemorrhage. Acute stroke ruled out. Patient was started on Keppra 500 mg p.o. twice daily. He has no complaints since admission. He had no focal deficit on physical examination. His vital signs are stable. His routine blood work was unremarkable. EEG was performed and revealed normal awake and Asleep electroencephalogram. His symptoms attributed to possible partial seizure, discharged home on Keppra 500 mg p.o. twice daily, plan to follow-up with neurology according to Dr. Corona's recommendation, follow-up with PCP in 2 weeks. . Discharge Activity: Return to Normal Activity Weight Bearing Status: Full weight bearing Call your doctor if you observe: Fever of 101 or Higher, Shortness of breath, Dizziness, Fainting spells, Chest pain, Increased palpitations (irregular heartbeat), Uncontrolled pain Home Medications: Medications to take at Discharge Aspirin [Aspirin, Baby] 81 mg PO DAILY@0800 #90 tab.chew 10/27/17 atorvastatin 80 mg tablet 40 mg PO DAILY@2200 tab 11/07/17 levETIRAcetam tablet [Keppra tablet] 500 mg PO BID #90 tab 01/02/18 Following Prescrptions Were Given to Patient: levETIRAcetam tablet [Keppra tablet] 500 mg PO BID #90 tab Primary Care Physician: Hawk Holley MD [Primary Care Provider] - Please follow up with your Primary Care Physician in: 2 week.s Please Follow Up With: Maurice Corona MD When: call his office. Disposition: Home Minutes spent on discharge:: 26 Patient Condition:: Stable Medical Necessity - Tobacco Use Smoking Status: Never smoker Tobacco Use: Non-smoker Meaningful Use Info Meaningful Use Diagnoses (Choose all that apply): None applicable Code Visit OBSV E&M: 26519 Observation care discharge
--- NOTE | 2018-01-02 14:01 | DS.PCM_ITS ---
Discharge Date and Diagnosis Date of Admission: 12/31/17 Date of Discharge: 01/02/18 - Primary Discharge Diagnosis Possible partial seizure. - Secondary Discharge Diagnosis Chronic Problems (Last Updated 01/01/18 @ 12:50 by Mercedes Linder MD) Dilated aortic root (Chronic) Cryptogenic stroke (Chronic) Subacute cortical based ischemic infarct involving the left parahippocampus/hippocampus and smaller portions of the left lingual gyrus. Patent foramen ovale (Chronic) Hospital Course and Treatment Imaging Results: Clinical Impression(s) from Imaging Studies Brain CT 12/31/17 18:20 IMPRESSION: Normal unenhanced CT scan of the brain. Electronically Signed: Casper Loving MD at 19:00 EDT , Service support , Chest X-Ray 12/31/17 18:21 IMPRESSION: Normal x-ray examination of the chest. Electronically Signed: Sabino Dos Santos MD at 19:12 EDT , Service support , Brain MRI 01/01/18 08:00 IMPRESSION: There is a mucosal retention cyst in the left maxillary sinus measures 1.6 cm. There is no evidence for recent intracranial ischemia or other cause of cytotoxic edema on diffusion weighted imaging (DWI). Electronically Signed: Lavon Shukla MD at 12:19 EDT Tel , Service support , Dr. Corona, neurology. Procedures: EKG Summary of Care Provided: Patient seen and examined on the day of discharge and appeared to be stable to be discharged home. He denies any more complaints. Weakness and numbness in the left side resolved since admission. His vital signs are stable. - Physical Exam General: Alert, Oriented x3, Cooperative, No apparent distress. HEENT: Atraumatic, PERRLA, EOMI. Neck: Supple, No JVD, Negative Carotid Bruits, Trachea Midline, Thyroid Normal. Lungs: Clear to auscultation, Normal air movement, No rhonchi, No wheeze, No rales. Cardiovascular: Regular rate, Regular Rhythm, Normal S1, Normal S2, PMI Normal. Abdomen: Bowel Sounds Present, Soft, Non Tender, Non-Distended, No Hepato- splenomegaly. Extremities: No clubbing, No cyanosis, No edema Skin: No rashes, No breakdown Neurological: Neuro grossly intact Vital Signs are stable. Hospital course: The patient is a 57 year old M admitted because of an episode of left-sided facial droop, slurred speech and left-sided body weakness in context of recent history of cryptogenic stroke due to patent foramen ovale. Initially, there was a concern that he may have a new stroke. CT scan brain showed no acute findings. Neurology consulted and recommended that this may be due to partial seizure. MRI brain was performed and showed no evidence of acute infarction or hemorrhage. Acute stroke ruled out. Patient was started on Keppra 500 mg p.o. twice daily. He has no complaints since admission. He had no focal deficit on physical examination. His vital signs are stable. His routine blood work was unremarkable. EEG was performed and revealed normal awake and Asleep electroencephalogram. His symptoms attributed to possible partial seizure, discharged home on Keppra 500 mg p.o. twice daily, plan to follow-up with neurology according to Dr. Corona's recommendation, follow-up with PCP in 2 weeks. . Discharge Activity: Return to Normal Activity Weight Bearing Status: Full weight bearing Call your doctor if you observe: Fever of 101 or Higher, Shortness of breath, Dizziness, Fainting spells, Chest pain, Increased palpitations (irregular heartbeat), Uncontrolled pain Home Medications: Medications to take at Discharge Aspirin [Aspirin, Baby] 81 mg PO DAILY@0800 #90 tab.chew 10/27/17 atorvastatin 80 mg tablet 40 mg PO DAILY@2200 tab 11/07/17 levETIRAcetam tablet [Keppra tablet] 500 mg PO BID #90 tab 01/02/18 Following Prescrptions Were Given to Patient: levETIRAcetam tablet [Keppra tablet] 500 mg PO BID #90 tab Primary Care Physician: Hawk Holley MD [Primary Care Provider] - Please follow up with your Primary Care Physician in: 2 week.s Please Follow Up With: Maurice Corona MD When: call his office. Disposition: Home Minutes spent on discharge:: 26 Patient Condition:: Stable Medical Necessity - Tobacco Use Smoking Status: Never smoker Tobacco Use: Non-smoker Meaningful Use Info Meaningful Use Diagnoses (Choose all that apply): None applicable Code Visit OBSV E&M: 72655 Observation care discharge
== END 2018-01-02 11:22 | disposition home or self-care (01) ==
LOC: ED 19:06 → PCU 20:46
PROVIDERS: Admitting Provider Internal Medicine; Emergency Provider Emergency Medicine; Family Provider Family Medicine; PCP Family Medicine; Visit Provider Hospitalist
DX: R53.1 Weakness (principal); R47.81 Slurred speech; R29.810 Facial weakness; Q21.1 Atrial septal defect; Z86.73 Personal history of transient ischemic attack (TIA), and cerebral infarction without residual deficits; K21.9 Gastro-esophageal reflux disease without esophagitis; I77.819 Aortic ectasia, unspecified site; Z79.82 Long term (current) use of aspirin; Z79.899 Other long term (current) drug therapy
CPT/HCPCS: 36415; 70450; 70551; 71045; 80048; 80061; 80307; 82962; 84443; 84484; 85025; 85610; 85730; 92523; 93005; 93880; 96360; 96361; 96372; 99218; 99283; J7030; G0378

== ENCOUNTER → 2018-02-09 10:35 | Outpatient (CLI) | payer OTHER, SELFPAY ==
[2018-02-09 11:50] LABS: Anion Gap 6 (5-15); BUN 10 mg/dL (7-18); BUN/Creat Ratio 10.1 RATIO (10-20); Calcium,Total 8.8 mg/dL (8.5-10.1); Chloride 109 mmol/L (98-107); Creatinine, Serum 0.99 mg/dL (0.70-1.30); EST Glomerular Filtration Rate 83 mL/min (>60); Est Glom Filt Rate - Afr Amer 100 mL/min (>60); Glucose 161 mg/dL (74-106); Potassium 3.9 mmol/L (3.5-5.1); Sodium Level 141 mmol/L (136-145)
== END ==
PROVIDERS: Family Provider Family Medicine; PCP Family Medicine; Visit Provider Nurse Practitioner Family
DX: I77.810 Thoracic aortic ectasia (principal); Q21.1 Atrial septal defect; Z86.73 Personal history of transient ischemic attack (TIA), and cerebral infarction without residual deficits
CPT/HCPCS: 36415; 80048

== ENCOUNTER → 2018-02-14 10:08 | Outpatient (CLI) | payer OTHER, SELFPAY | PROVIDERS: Family Provider Family Medicine; PCP Family Medicine; Visit Provider Nurse Practitioner Family | DX: Q21.1 Atrial septal defect (principal); I77.810 Thoracic aortic ectasia; Z86.73 Personal history of transient ischemic attack (TIA), and cerebral infarction without residual deficits | CPT/HCPCS: 93312; 93320; 93325; J7030; J7040; A4216 ==

== ENCOUNTER → 2018-06-15 10:35 | Outpatient (CLI) | payer OTHER, SELFPAY ==
[2018-02-02 13:53] VITALS: BMI 25.7
[2018-06-15 11:24] LABS: AST(SGOT) 21 U/L (15-37); Alanine Aminotransfer ALT/SGPT 39 U/L (16-61); Albumin, Serum 3.8 g/dL (3.2-5.0); Alkaline Phosphatase 64 U/L (45-117); Bilirubin, Direct 0.23 mg/dL (0.00-0.30); Cholesterol 90 mg/dL (200); Globulin 3.1 g/dL (2.2-4.2); High Density Lipoprotein 42 mg/dL; Protein, Total 6.9 g/dL (6.4-8.2); Triglycerides 40 mg/dL; Very Low Density Lipoprotein 8 mg/dL (5-40)
== END ==
PROVIDERS: Family Provider Family Medicine; PCP Family Medicine; Referring Provider Nurse Practitioner Family; Visit Provider Nurse Practitioner Family
DX: Q21.1 Atrial septal defect (principal); I77.810 Thoracic aortic ectasia; Z86.73 Personal history of transient ischemic attack (TIA), and cerebral infarction without residual deficits
CPT/HCPCS: 36415; 80061; 80076

== ENCOUNTER → 2018-09-04 16:22 | Outpatient (CLI) | payer OTHER, SELFPAY ==
[2018-06-22 13:46] VITALS: BMI 25.4
[2018-09-04 18:13] LABS: PSA,Total - Annual Screen 0.96 ng/mL (0.00-4.00)
== END ==
PROVIDERS: Family Provider Family Medicine; PCP Family Medicine; Visit Provider Family Medicine
DX: R39.198 Other difficulties with micturition (principal)
CPT/HCPCS: 36415; 84153; 87086; G0103

== ENCOUNTER → 2018-09-24 13:44 | Outpatient (CLI) | payer OTHER, SELFPAY ==
[2018-06-22 13:46] VITALS: BMI 25.4
== END ==
PROVIDERS: Family Provider Family Medicine; PCP Family Medicine; Referring Provider Family Medicine; Visit Provider Family Medicine
DX: R19.7 Diarrhea, unspecified (principal)
CPT/HCPCS: 87493; 87506

== ENCOUNTER → 2018-12-27 08:17 | Outpatient (CLI) | payer OTHER, SELFPAY ==
[2018-12-21 14:11] VITALS: BMI 26.1
[2018-12-27 10:24] LABS: Cholesterol 147 mg/dL (200); High Density Lipoprotein 41 mg/dL; Triglycerides 55 mg/dL; Very Low Density Lipoprotein 11 mg/dL (5-40)
[2018-12-27 10:37] LABS: AST(SGOT) 19 U/L (15-37); Alanine Aminotransfer ALT/SGPT 30 U/L (16-61); Albumin, Serum 3.7 g/dL (3.2-5.0); Alkaline Phosphatase 62 U/L (45-117); Bilirubin, Direct 0.11 mg/dL (0.00-0.30); Globulin 3.3 g/dL (2.2-4.2)
== END ==
PROVIDERS: Nurse Practitioner Family; Family Provider Family Medicine; PCP Family Medicine; Referring Provider Family Medicine; Visit Provider Family Medicine
DX: E78.5 Hyperlipidemia, unspecified (principal)
CPT/HCPCS: 36415; 80061; 80076

== ENCOUNTER → 2019-01-15 08:03 | Outpatient (CLI) | payer OTHER, SELFPAY ==
[2018-12-21 14:11] VITALS: BMI 26.1
--- NOTE | 2019-01-15 08:07 | ECHOD_ITS ---
Reason For Study: DILATED AO ROOT Procedure This was a 2D Doppler, Color Flow transthoracic echocardiogram. Exam performed in department. Left Ventricle Normal size and thickness. The estimated ejection fraction is 60 %. Stage 1 diastolic dysfunction. No regional wall motion abnormalities noted. Right Ventricle Normal size and thickness. Normal systolic function. Atria Normal left atrium. Normal right atrium. Normal atrial septum. Mitral Valve The mitral valve is structurally normal. No prolapse or stenosis seen. Tricuspid Valve Normal tricuspid valve. Trivial tricuspid valve insufficiency. Right ventricular systolic pressure estimated to be 23 mmHg. Aortic Valve Trisinus/trileaflet aortic valve. Mild diffuse aortic valve thickening. Trivial aortic valve insufficiency. Pulmonic Valve Normal pulmonic valve. Great Vessels Normal aortic root. Normal arch. Normal inferior vena cava. Inferior vena cava collapse with sniff. Pericardium/Pleural No pericardial effusion. Medication Previously positive bubble study on echo. MMode/2D Measurements & Calculations LVIDd: 4.3 cm IVSd: 0.85 cm Ao root diam: 3.3 cm LVIDs: 3.0 cm LVPWd: 0.97 cm RVDd: 3.1 cm FS: 30.1 % LAV(MOD-bp): 54.5 ml LA A4 area: 18.2 cm2 LA dimension(2D): 3.4 cm LAV(MOD-bp) Indexed: 27.6 ml/m2 LAV(MOD-sp2): 54.7 ml LAV(MOD-sp4): 53.1 ml RA A4 area: 12.4 cm2 Time Measurements MV dec time: 0.18 sec Doppler Measurements & Calculations MV E max joel: 67.7 cm/sec Lat Peak E' Joel: 11.0 cm/sec Med Peak E' Joel: 6.8 cm/sec MV A max joel: 62.5 cm/sec E/E' lat: 6.2 E/E' med: 10.0 MV E/A: 1.1 Ao V2 max: 87.4 cm/sec AI max joel: 352.5 cm/sec LV V1 max: 82.1 cm/sec Ao max P.1 mmHg AI max P.7 mmHg LV V1 max P.7 mmHg AI dec slope: 175.1 cm/sec2 AI P1/2t: 589.6 msec PA V2 max: 103.6 cm/sec TR max joel: 207.4 cm/sec TR max P.2 mmHg Interpretation Summary The estimated ejection fraction is 60 %. Stage 1 diastolic dysfunction. Trivial tricuspid valve insufficiency. Right ventricular systolic pressure estimated to be 23 mmHg. Trivial aortic valve insufficiency. Compared to echo report dated 10/27/2017, no appreciable changes noted. Aortic root today is 3.3 cm. Ordering Physician: Zach Cummins Referring Physician: ALEX CALZADA Performed By: Gracie Cohen, SEFERINO, RVT
== END ==
PROVIDERS: Family Provider Family Medicine; PCP Family Medicine; Referring Provider Internal Medicine Cardiovascular Disease; Visit Provider Internal Medicine Cardiovascular Disease
DX: I77.810 Thoracic aortic ectasia (principal); Q21.1 Atrial septal defect; Z86.73 Personal history of transient ischemic attack (TIA), and cerebral infarction without residual deficits
CPT/HCPCS: 93306

== ENCOUNTER → 2019-03-13 16:03 | Outpatient (CLI) | payer OTHER, SELFPAY ==
[2018-12-21 14:11] VITALS: BMI 26.1
--- NOTE | 2019-03-13 16:06 | RAD_ITS ---
STUDY: X-RAY - RIGHT ELBOW REASON FOR EXAM: Male, 58 years old. Right elbow pain for years TECHNIQUE: 3 view(s) of the elbow. COMPARISON: None. FINDINGS: Normal visualized humerus, radius and ulna. There is degenerative arthrosis of the radiocapitellar and ulnotrochlear articulations. Calcific tendinitis of the common extensor tendon. RAD/Elbow min 3 Views IMPRESSION: There is degenerative arthrosis of the radiocapitellar and ulnotrochlear articulations. Calcific tendinitis of the common extensor tendon. Electronically Signed: Jose Rafael Webb MD at 16:49 EDT Tel , Service support ,
== END ==
PROVIDERS: Family Provider Family Medicine; PCP Family Medicine; Referring Provider Family Medicine; Visit Provider Family Medicine
DX: M19.021 Primary osteoarthritis, right elbow (principal); M65.231 Calcific tendinitis, right forearm
CPT/HCPCS: 73080

== ENCOUNTER → 2019-07-23 16:35 | Outpatient (CLI) | payer OTHER, SELFPAY ==
[2019-07-23 15:53] VITALS: BMI 27.9
--- NOTE | 2019-07-23 16:37 | RAD_ITS ---
STUDY: X-RAY CHEST REASON FOR EXAM: Male, 59 years old. patient complains of cough for several months TECHNIQUE: Frontal and lateral views of the chest were performed COMPARISON: 31 December 2017 FINDINGS: The lungs are clear and expanded. There is no demonstrated pleural abnormality. Normal size heart. Normal mediastinum and soila. Normal visualized pulmonary arteries. Normal visualized aortic arch and descending thoracic aorta. Normal visualized thoracic spine. Normal visualized ribs, clavicles, and shoulders. There is no demonstrated abnormality of the visualized soft tissue structures of the upper abdomen. RAD/Chest PA and Lateral IMPRESSION: Normal x-ray examination of the chest. Electronically Signed: Fran Michelle, at 9:37 EST Tel , Service support ,
== END ==
PROVIDERS: PCP Family Medicine; Referring Provider Surgery; Visit Provider Surgery
DX: R05 Cough (principal)
CPT/HCPCS: 71046

== ENCOUNTER → 2019-08-02 07:59 | Outpatient (CLI) | payer OTHER, SELFPAY ==
[2019-07-16 08:57] VITALS: BMI 27.9
[2019-07-23 15:53] VITALS: BMI 27.9
--- NOTE | 2019-08-02 08:00 | CT_ITS ---
STUDY: CTA CHEST REASON FOR EXAM: Male, 59 years old. AORTIC ROOT DILATATION RADIATION DOSAGE (If Supplied By Facility): CTDIvol = ( 14.99 ) mGy, DLP = ( 603.22 ) mGycm TECHNIQUE: The examination was performed with the intravenous administration of 100ML ISOVUE 370. Post-processing of the angiographic images was performed, with multiplanar reformation and 3D reconstruction. Individualized dose optimization techniques were used for this CT. COMPARISON: None. FINDINGS: Normal enhancement of the main pulmonary artery and right and left pulmonary arteries. Normal enhancement of the bilateral peripheral pulmonary arteries. There is no demonstrated pulmonary embolism. Normal thoracic aorta and visualized great vessels. The aortic root is not dilated. There is no demonstrated aortic dissection. Normal heart and pericardium. Normal mediastinum. Normal hilar regions. Normal visualized trachea and bronchi. The lungs are well expanded. The minimal degree of emphysematous changes. Normal pleura. Normal chest wall structures. Normal osseous structures. There is a 4.7 cm x 2.7 cm peripherally enhancing nodular density in the posterior aspect of the right lobe of the liver superiorly. This may represent a hemangioma. Further evaluation with a CT scan of the abdomen is recommended. CT/CTA Chest W/WO Contrast IMPRESSION: The aortic root is not dilated. 4.7 cm x 2.7 sign of peripheral enhancing nodular density posterior aspect of the right lobe of the liver superiorly. Correlation with a CT scan of the abdomen is recommended. Electronically Signed: Melvin Potter, at 14:26 EST , Service support ,
--- NOTE | 2019-08-02 08:21 | STE_ITS ---
Reason For Study: FAMILY HX Stress Results Protocol: Luis Protocol Maximum Predicted HR: 159 bpm Target HR: 135 bpm % Maximum Predicted HR: 89 % DurationHeart Rate Stage (mm:ss) (bpm) BP Comment BASELINE 74 112/84 STAGE 1 3:00 94 138/70 STAGE 2 3:00 114 152/84 STAGE 3 2:30 141 / INCREASED SOB, LEFT DISCOMFORT, NO CHEST PAIN RECOVERY 88 122/68 Stress Duration: 8:30 mm:ss Maximum Stress HR: 141 bpm Baseline Echocardiogram Findings The estimated ejection fraction is 65 %. Stress Echo Wall motion Data Resting WM Intermediate WM Stress WM Resting Wall Motion Wall Motion Stress No regional wall motion No regional wall motion abnormalities noted. abnormalities noted. EKG Data The baseline ECG displays normal sinus rhythm. The patient exercised according to the regular Luis protocol for a total duration of 8:30. The maximum heart rate attained was 146 beats per minute. This was 91% of maximum predicted heart rate. The patient exercised into stage 3 of the Luis protocol. During stress, there were no ST or T wave changes noted to suggest ischemia. No clinical angina was noted. Interpretation Summary The estimated ejection fraction is 65 %. Normal, adequate, treadmill echocardiogram. Negative for ischemia by EKG and echocardiographic anterior. No anginal symptoms noted. Rare PVC noted. Appropriate blood pressure response to exercise. Average exercise capacity for age. Final LVEF is 75%. Test terminated due to the attainment of target heart rate. Patient tolerated procedure well. No complications. Ordering Physician: Zach Cummins Referring Physician: Zach Cummins Performed By: Kandis Mcleod RDCS
== END ==
PROVIDERS: PCP Family Medicine; Referring Provider Internal Medicine Cardiovascular Disease; Visit Provider Internal Medicine Cardiovascular Disease
DX: I77.810 Thoracic aortic ectasia (principal); Z86.73 Personal history of transient ischemic attack (TIA), and cerebral infarction without residual deficits; Q21.1 Atrial septal defect; Z82.49 Family history of ischemic heart disease and other diseases of the circulatory system
CPT/HCPCS: 71275; 93017; 93350; Q9967

== ENCOUNTER → 2019-08-16 14:01 | Outpatient (CLI) | payer OTHER, SELFPAY ==
[2019-07-23 15:53] VITALS: BMI 27.9
--- NOTE | 2019-08-16 14:07 | CT_ITS ---
STUDY: CT ABDOMEN AND PELVIS WITH CONTRAST REASON FOR EXAM: Male, 59 years old. LIVER MASS, FOLLOW UP FROM LIVER MASS SEEN ON PREVIOUS SCAN RADIATION DOSAGE (If Supplied By Facility): CTDIvol = ( 16.00 ) mGy, DLP = ( 1510.25 ) mGycm TECHNIQUE: Transaxial images were obtained from the dome of the diaphragm to the symphysis pubis with oral contrast. Oral and amp; IV Readi-CAT and amp; 100mL Isovue-300 was administered. Sagittal and coronal images were reconstructed. Individualized dose optimization techniques were used for this CT. COMPARISON: Comparison is made with prior examination dated November 01, 2009. FINDINGS: The visualized lung bases are unremarkable. The visualized portions of the heart are within normal limits. Stable enhancing nodular densities in the liver suggestive of a hemangioma. These are not changed. The largest is in the posterior aspect of the right lobe of liver measuring 2.1 cm x 4.9 cm. Normal gallbladder and extrahepatic biliary system. Normal spleen. Normal pancreas. Normal bilateral adrenal glands. There is a 1.5 cm cyst in the upper pole of the right kidney. This is unchanged. 1 cm cyst in the inferior posterior pole of the left kidney. Normal visualized stomach. Normal small intestine. Normal colon. The appendix is visualized and appears normal. Normal abdominal aorta. Normal inferior vena cava. Normal retroperitoneum. Diffuse bladder wall thickening. There is enlargement of the prostate gland. It measures 5.6 x 4.3 cm. There is a left-sided inguinal hernia containing adipose tissue. Small umbilical hernia containing fat. There are mild degenerative changes of the visualized lumbar spine. CT/Abdomen/Pelvis WITH Contrast IMPRESSION: Stable nodules in the liver suggestive of hemangiomas. Prostatic enlargement with indentation at the bladder base. Lateral wall thickening. Small bilateral renal cysts. Electronically Signed: Melvin Potter, at 15:52 EST , Service support ,
== END ==
PROVIDERS: PCP Family Medicine; Referring Provider Family Medicine; Visit Provider Family Medicine
DX: R16.0 Hepatomegaly, not elsewhere classified (principal)
CPT/HCPCS: 74177; Q9967

== ENCOUNTER → 2020-02-18 07:16 | Outpatient (CLI) | payer OTHER, SELFPAY ==
[2019-07-23 15:53] VITALS: BMI 27.9
[2020-02-18 08:48] LABS: AST(SGOT) 16 U/L (15-37); Alanine Aminotransfer ALT/SGPT 21 U/L (16-61); Albumin, Serum 3.6 g/dL (3.2-5.0); Alkaline Phosphatase 63 U/L (45-117); Bilirubin, Direct 0.13 mg/dL (0.00-0.30); Cholesterol 128 mg/dL (200); Globulin 3.2 g/dL (2.2-4.2); High Density Lipoprotein 43 mg/dL; Protein, Total 6.8 g/dL (6.4-8.2); Triglycerides 37 mg/dL; Very Low Density Lipoprotein 7 mg/dL (5-40)
== END ==
PROVIDERS: PCP Family Medicine; Referring Provider Internal Medicine Cardiovascular Disease; Visit Provider Internal Medicine Cardiovascular Disease
DX: E78.00 Pure hypercholesterolemia, unspecified (principal)
CPT/HCPCS: 36415; 80061; 80076

== ENCOUNTER → 2020-04-07 | Outpatient (CLI) | payer OTHER, SELFPAY ==
[2020-03-18 16:31] VITALS: BMI 27.0
[2020-04-07 10:40] LABS: Squamous Epithelial Cells - UA 0 SEEN /hpf (0-5); White Blood Cells 0 SEEN /hpf (0-5)
[2020-04-07 12:44] LABS: Color, Urine Yellow (Yellow); Glucose, Dipstick Normal (Normal); Ketone-Dipstick Negative (Negative); Leukocyte Esterase-Dipstick Negative /ul (Negative); Nitrite-Dipstick Negative (Negative); Occult Blood-Urine 10 /ul (Negative); Protein-Dipstick Negative (Negative); Specific Gravity, Urine 1.015 (1.002-1.030); Urine Bilirubin Dipstick Negative (Negative); Urine Clarity Clear (Clear); Urine Urobilinogen Normal (Normal)
[2020-04-07 13:02] LABS: Bacteria RARE /hpf (None Seen); Mucous, Urine 1+ /hpf (<or=2+); Red Blood Cells-Urine 0-5 SEEN /hpf (0-5)
== END | disposition home or self-care (01) ==
LOC: LABSPEC 10:36
PROVIDERS: PCP Family Medicine; Referring Provider Family Medicine; Visit Provider Family Medicine
DX: R31.29 Other microscopic hematuria (principal)
CPT/HCPCS: 81001

== ENCOUNTER → 2020-04-21 16:12 | Outpatient (CLI) | payer OTHER, SELFPAY ==
[2020-03-18 16:31] VITALS: BMI 27.0
[2020-04-21 16:27] LABS: Bacteria 0 SEEN /hpf (None Seen); Mucous, Urine 0 SEEN /hpf (<or=2+); Red Blood Cells-Urine 0 SEEN /hpf (0-5); Squamous Epithelial Cells - UA 0 SEEN /hpf (0-5); White Blood Cells 0 SEEN /hpf (0-5)
[2020-04-21 18:28] LABS: Color, Urine Yellow (Yellow); Glucose, Dipstick Normal (Normal); Ketone-Dipstick Negative (Negative); Leukocyte Esterase-Dipstick Negative /ul (Negative); Nitrite-Dipstick Negative (Negative); Occult Blood-Urine 10 /ul (Negative); Protein-Dipstick Negative (Negative); Specific Gravity, Urine 1.015 (1.002-1.030); Urine Bilirubin Dipstick Negative (Negative); Urine Clarity Clear (Clear); Urine Urobilinogen Normal (Normal)
[2020-04-21 18:29] LABS: ALB/GLOB Ratio 1.1 RATIO (0.9-2.4); AST(SGOT) 18 U/L (15-37); Alanine Aminotransfer ALT/SGPT 28 U/L (16-61); Albumin, Serum 3.8 g/dL (3.2-5.0); Alkaline Phosphatase 60 U/L (45-117); Anion Gap 5 (5-15); BUN 17 mg/dL (7-18); BUN/Creat Ratio 16.2 RATIO (10-20); Calcium,Total 8.8 mg/dL (8.5-10.1); Chloride 109 mmol/L (98-107); Creatinine, Serum 1.05 mg/dL (0.70-1.30); EST Glomerular Filtration Rate 76 mL/min (>60); Est Glom Filt Rate - Afr Amer 92 mL/min (>60); Globulin 3.5 g/dL (2.2-4.2); Glucose 91 mg/dL (74-106); PSA,Total - Annual Screen 0.96 ng/mL (0.00-4.00); Potassium 4.1 mmol/L (3.5-5.1); Protein, Total 7.3 g/dL (6.4-8.2); Sodium Level 142 mmol/L (136-145)
[2020-04-21 18:44] LABS: Microalbumin,Random Urine < 5.0 mg/L (NO RANGE EST.)
== END ==
PROVIDERS: PCP Family Medicine; Referring Provider Family Medicine; Visit Provider Family Medicine
DX: Z00.00 Encounter for general adult medical examination without abnormal findings (principal); Z12.5 Encounter for screening for malignant neoplasm of prostate; R31.29 Other microscopic hematuria; K21.9 Gastro-esophageal reflux disease without esophagitis
CPT/HCPCS: 36415; 80053; 81001; 82043; 84153; G0103

== ENCOUNTER → 2020-07-06 14:20 | Outpatient (CLI) | payer OTHER, SELFPAY ==
[2020-03-18 16:31] VITALS: BMI 27.0
== END ==
PROVIDERS: PCP Family Medicine; Visit Provider Family Medicine
DX: Z20.822 Contact with and (suspected) exposure to COVID-19 (principal)
CPT/HCPCS: 87633; 87635; U0003

== ENCOUNTER 2020-08-27 09:15 | Outpatient (RCR) | payer OTHER, SELFPAY ==
[2020-03-18 16:31] VITALS: BMI 27.0
[2020-08-27] MEDS: COVID-19 VACC, MRNA(PFIZER)/PF 30 MCG/0.3 ML SYRINGE IM (16:14)
[2020-09-17] MEDS: COVID-19 VACC, MRNA(PFIZER)/PF 30 MCG/0.3 ML SYRINGE IM (16:02)
== END 2020-08-27 23:59 ==
LOC: IMMUN 09:15
PROVIDERS: PCP Family Medicine; Visit Provider Family Medicine
DX: Z23 Encounter for immunization (principal)
CPT/HCPCS: 0001A; 0002A; 91300

== ENCOUNTER 2021-03-15 12:11 | Day surgery (SDC) | payer OTHER, SELFPAY ==
--- NOTE | 2021-03-15 11:27 | PCM.HP.BLA ---
History and Physical Date of Admission: 03/15/21 HISTORY AND PHYSICAL ? Golden Moody Bob 1960 ? REFERRING PHYSICIAN: Self ? CHIEF COMPLAINT: Follow Up (Esophageal Dysphagia) ? HPI: The patient is a 60 year old male referred for endoscopy. ?In 2013?Patient?was?status post an EGD with 48 hour pH probe. ?The DeMeester score came back as 42.4. ?His upper scope showed the Z line was at 40 cm a small hiatal hernia was identified. ?He has already had esophageal motility studies which shows decreased motility within the esophagus..?. ?Golden notes occasional?heartburn. ??Golden notes?dysphagia. ?Golden denies?a history of ulcers/ peptic ulcer disease. ? ? Patient status post an EGD completed at the [facility] on 10[facility]01[facility]2020. ?Biopsy of the GE junction which came back with mild reactive squamous mucosa with parakeratosis and increased eosinophils it did look slightly irritated here. ?Patient states that his choking symptoms have improved since he has gotten the vaccination. ?And he is currently taking [id number] proton pump inhibitors. ? Patient now comes back with choking-like sensations and things feeling like they are getting stuck in his distal esophagus. With the findings of the last upper endoscopy I think it is important for us to rescope him and more than likely do dilatation in the area to at least 2 cm to see if this alleviates any of his symptoms. ? ? ? PAST MEDICAL HISTORY PAST MEDICAL HISTORY Diagnosis Date ? Arthritis ? ? Dysphagia ? ? GERD (gastroesophageal reflux disease) ? ? Stroke (HCC) ? ? ? PAST SURGICAL HISTORY PAST SURGICAL HISTORY Procedure Laterality Date ? EGD ? 10-10-11 ? EGD W/O OR W/BRUSH/WASH ? 08/23/13 ? G-ESOPH REFLX TST W/ELECTROD ? 08/23/13 ? HERNIA REPAIR HX ? ? ? PAST SURGICAL HISTORY OF ? 1983 ? Vasectomy ? REPAIR ING HERNIA,5+Y/O,REDUCIBL ? 1979 ? Hernia repair, inguinal Left ? ? ? CURRENT MEDICATIONS Current Outpatient Medications Medication Sig ? ubidecarenone (H2Q COQ10 ORAL) Take by mouth. ? aspirin, enteric coated (ASPIRIN, ENTERIC COATED) 81 mg EC tablet Take 81 mg by mouth once daily. ? rosuvastatin (CRESTOR) 5 mg tablet Take 5 mg by mouth once daily. ? gemfibrozil (LOPID) 600 mg tablet Take 600 mg by mouth twice daily. (Patient not taking: Reported on 03/08/2021 ) ? atorvastatin (LIPITOR) 40 mg tablet TAKE 1 TABLET BY MOUTH EVERYDAY AT BEDTIME (Patient not taking: Reported on 09/10/2020) ? fluticasone (FLONASE) 50 mcg/actuation nasal spray Use 2 Sprays in each nostril once daily. Rinse mouth after use. (Patient not taking: Reported on 09/10/2020 ) ? OTC NUTRITIONAL SUPPLEMENT Herbal Aloe force (Patient not taking: Reported on 03/08/2021 ) ? GLUC CUELLAR/CHONDRO CUELLAR A/VIT C/MN (GLUCOSAMINE 1500 COMPLEX ORAL) Take by mouth. (Patient not taking: Reported on 03/08/2021 ) ? No current facility-administered medications for this visit. ? ? ALLERGIES: Patient has no known allergies. ? PERSONAL HISTORY: SOCIAL HISTORY Social History ? Tobacco Use ? Smoking status: Never Smoker ? Smokeless tobacco: Never Used Vaping Use ? Vaping Use: Never used Substance Use Topics ? Alcohol use: Yes ? ? Comment: occasional ? Drug use: No ? FAMILY HISTORY: FAMILY HISTORY FAMILY HISTORY Problem Relation Age of Onset ? other (dysphagia) Mother ? ? Parkinson?s Disease Father ? ? Alzheimer's Disease Father ? ? Breast Cancer Sister ? ? No Known Problems Brother ? ? ? REVIEW OF SYMPTOMS: The review of systems data was entered by the nurse and reviewed by me ? Nursing Notes: Yaima Gan LPN 03/08/2021 2:59 PM Signed REVIEW OF SYSTEMS: General: The patient denies fatigue, denies weight loss, denies weight gain, denies feeling hot, and denies feelings of cold. Eyes: The patient denies glaucoma, denies eye injury/surgery, wears glasses or contacts. Ear/Nose/Throat: The patient denies allergies, denies hayfever, denies ear infections, and denies bloody noses. Cardiovascular: The patient denies chest pain, denies heart disease, denies high blood pressure,denies cardiac stent, denies prior heart attack, denies irregular heart beat, denies high cholesterol, denies poor circulation, denies heart failure, other cardiac issues, denies claudication, denies cold feet, denies peripheral arterial stent. Respiratory: The patient denies tuberculosis, denies pneumonia, denies frequent cough, denies pulmonary embolism, denies shortness of breath, and denies coughing up blood. Gastrointestinal: The patient NOTES difficulty swallowing, denies acid reflux, denies ulcers, denies vomiting, denies jaundice/hepatitis, denies gallbladder problems, denies black or tarry stools, denies hemorrhoids, denies bleeding from rectum, denies diverticulitis, denies constipation, denies diarrhea, denies loss of stool control, and denies hernias. Kidney/Bladder: The patient denies kidney stones, denies urine infections, and denies bloody urine. Skin: The patient denies a history of skin cancer, denies bleeding/changing moles, and denies a history of skin rash. Neurologic: The patient denies a history of epilepsy/convulsions, denies headaches, denies head/spinal injuries, and NOTES stroke/TIA. Psychiatric: The patient denies psychiatric medications, denies depression, and denies voices, denies substance abuse. Endocrine: The patient denies thyroid disorders, denies diabetes, and denies hormonal problems. Hematologic: The patient denies a history of bruising, denies bleeding, and denies anemia, denies blood clots. Infections: The patient NOTES a history of measles and mumps, denies rheumatic fever, and denies sexually transmitted diseases. Musculoskeletal: The patient denies back pain/injury, NOTES back problems, denies sciatica, denies knee/foot trouble, NOTES arthritis, or denies gout. ? ? When was patient's last Mammogram screening? N/A ? Last Colonoscopy: Unknown ? Yaima Gan LPN ? PHYSICAL EXAMINATION: ? General: The patient is 60 year old male, well nourished, well hydrated in no acute distress. The patient is oriented to time, place, and person. ? VITALS: Blood pressure 134/62, pulse 94, temperature 37.2 ?C (99 ?F), height 177.8 cm (5' 10), weight 82.1 kg (181 lb), SpO2 97 %. Body mass index is 25.97 kg/m?. ? HEENT: Normal cephalic, ataumatic, pupils are equally round, sclera are anicteric, mucous membranes are moist, oropharynx is clear. Neck has no masses, asymmetry or lymphadenopathy. Thyroid is unremarkable. ? Respiratory: Clear to auscultation and percussion. Normal respiratory excursion and pattern. ? Cardiac: Examination is regular rate and rhythm. ? Abdominal exam: Soft, nontender, with no palpable masses. No hepatosplenomegaly. No palpable hernias. ? Rectal exam: exam deferred ? Extremities: no clubbing, cyanosis or edema. No adenopathy. ? Other: ? LABORATORY VALUES: As Noted ? RADIOLOGIC STUDIES: As Noted ? Assessment IMPRESSION: Gastroesophageal reflux disease with esophagitis without hemorrhage (primary encounter diagnosis) ? ? PLAN: I plan to perform upper endoscopy with balloon dilatation. We discussed the risks and benefits of the planned endoscopy. I have informed the patient that complications can occur including failure to complete the endoscopy and perforation. The patient had the opportunity to ask questions concerning the planned endoscopy. My staff has also explained the procedure to the patient in understandable terms and has given the patient printed material concerning the procedure. The patient freely consents to surgery. ? Diagnoses: (K21.00) Gastroesophageal reflux disease with esophagitis without hemorrhage (primary encounter diagnosis) ? ? A letter was sent to Dr. Severino Holley MD indicating the above finding for this patient. Return to Clinic: The patient is instructed to follow-up with me 1 week post operatively. ? COVID (Procedure Consent) Procedure Criteria ? Procedure Criteria: Yes Elective The surgeon/proceduralist and patient have discussed in detail the risk of exposure to and/or potential harm posed by the COVID-19 virus with having a surgery/procedure at this time versus the risk of? delaying the surgery/procedure. It is not possible to know either the risk of delaying the surgery or procedure or chance of getting an infection with perfect accuracy, but a joint decision was made between the patient and the surgeon/proceduralist ?to proceed at this time with the scheduled surgery/procedure as indicated on the consent form. ? ? Zach Victoria III, MD
[2021-03-15 12:40] VITALS: BP 118/75; PULSE 60; RESP 16; TEMP 36.5; O2SAT 99; BMI 26.1
[2021-03-15] MEDS: Lactated Ringers 1,000 ML 100 ML IV (12:51)
[2021-03-15 13:30] VITALS: BP 118/75; BP 125/81; PULSE 68; RESP 14; TEMP 36.6; O2SAT 93
--- NOTE | 2021-03-15 13:30 | OP.CCLET_ITS ---
03/15/2021 Hawk Holley [address] [place] [address] Re : Upper GI endoscopy procedure for Angel Rojas Dear Dr. Holley This procedure was performed on Monday, March 15, 2021. My impressions and recommendations are as follows: Impressions : - Benign-appearing esophageal stenosis. Dilated. - Normal stomach. No specimens collected. - Normal examined duodenum. Recommendations : - Discharge patient to home. - Resume previous diet. - Continue present medications. - Repeat upper endoscopy at appointment to be scheduled for surveillance. - Return to my office in 2 weeks. My findings are described in the full procedure note, which is enclosed. If I can be of further assistance, please feel free to contact me at Doctor phone number(s): , Work: . Sincerely, MD Zach Alex MD 03/15/2021 1:30:14 PM This report has been signed electronically.
--- NOTE | 2021-03-15 13:30 | OP.EGD_ITS ---
Patient Name: Angel Rojas Procedure Date: 03/15/2021 1:01 PM Date of : 1960 Age: 60 Procedure: Upper GI endoscopy Indications: Dysphagia, Gastro-esophageal reflux disease, Nausea with vomiting Providers: Zach Victoria MD Medicines: See the Anesthesia note for documentation of the administered medications Patient Profile: This is a 60 year old male. Refer to note in patient chart for documentation of history and physical. Complications: No immediate complications. Procedure: Pre-Anesthesia Assessment: - Prior to the procedure, a History and Physical was performed, and patient medications and allergies were reviewed. The patient's tolerance of previous anesthesia was also reviewed. The risks and benefits of the procedure and the sedation options and risks were discussed with the patient. All questions were answered, and informed consent was obtained. Prior Anticoagulants: The patient has taken aspirin, last dose was 7 days prior to procedure. ASA Grade Assessment: II - A patient with mild systemic disease. After reviewing the risks and benefits, the patient was deemed in satisfactory condition to undergo the procedure. After obtaining informed consent, the endoscope was passed under direct vision. Throughout the procedure, the patient's blood pressure, pulse, and oxygen saturations were monitored continuously. The gastroscope was introduced through the mouth, and advanced to the second part of duodenum. The upper GI endoscopy was accomplished without difficulty. The patient tolerated the procedure well. Scope In: 1:17:33 PM Scope Out: 1:24:16 PM Total Procedure Duration Time 0 hours 6 minutes 43 seconds Findings: One benign-appearing, intrinsic stenosis was found at the gastroesophageal junction. This stenosis was mildly severe and measured 2 mm (inner diameter) x 1 cm (in length). The stenosis was traversed. A guide wire was placed, then the scope was withdrawn. Using the wire as a guide, dilation with an 18-19-20 mm balloon dilator was performed to 20 mm. The dilation site was examined and showed mild improvement in luminal narrowing. Estimated blood loss was minimal. The entire examined stomach was normal. No biopsies or other specimens were collected for this exam. The examined duodenum was normal. Impression: - Benign-appearing esophageal stenosis. Dilated. - Normal stomach. No specimens collected. - Normal examined duodenum. Recommendation: - Discharge patient to home. - Resume previous diet. - Continue present medications. - Repeat upper endoscopy at appointment to be scheduled for surveillance. - Return to my office in 2 weeks. Procedure Code(s): --- Professional --- 40904, Esophagogastroduodenoscopy, flexible, transoral; with insertion of guide wire followed by passage of dilator(s) through esophagus over guide wire Diagnosis Code(s): --- Professional --- K22.2, Esophageal obstruction R13.10, Dysphagia, unspecified K21.9, Gastro-esophageal reflux disease without esophagitis R11.2, Nausea with vomiting, unspecified CPT copyright 2017 [employer]. All rights reserved. The codes documented in this report are preliminary and upon medical records coder review may be revised to meet current compliance requirements. MD Zach Alex MD 03/15/2021 1:30:14 PM This report has been signed electronically. Number of Addenda: 1 Note Initiated On: 03/15/2021 1:01 PM Addendum Number: 1 Addendum Date: 03/15/2021 1:34:06 PM The esophageal dilatation was [id number] and not with a guidewire. MD Zach Alex MD 03/15/2021 1:37:22 PM This report has been signed electronically.
[2021-03-15 13:35] VITALS: BP 118/75; BP 121/78; PULSE 67; RESP 14; O2SAT 95
[2021-03-15 13:40] VITALS: BP 118/75; BP 118/81; PULSE 61; RESP 16; O2SAT 97
[2021-03-15 13:46] VITALS: BP 118/75; BP 119/76; PULSE 57; RESP 16; TEMP 36.4; O2SAT 97
[2021-03-15 14:00] VITALS: BP 118/75
== END 2021-03-15 14:07 | disposition home or self-care (01) ==
LOC: EN 12:13 → AC 12:14
PROVIDERS: PCP Family Medicine; Referring Provider Family Medicine; Visit Provider Surgery
PROC: 0DJ08ZZ Inspection of Upper Intestinal Tract, Via Natural or Artificial Opening Endoscopic (ICD-10-PCS; CPT 43235; principal; 2021-03-15 13:10)
DX: K22.2 Esophageal obstruction (principal); K21.00 Gastro-esophageal reflux disease with esophagitis, without bleeding; R13.10 Dysphagia, unspecified; E78.00 Pure hypercholesterolemia, unspecified; M19.90 Unspecified osteoarthritis, unspecified site; Z79.82 Long term (current) use of aspirin; Z79.899 Other long term (current) drug therapy; Z86.73 Personal history of transient ischemic attack (TIA), and cerebral infarction without residual deficits
CPT/HCPCS: 43249; J7120

== ENCOUNTER → 2021-11-16 | Outpatient (CLI) | payer OTHER, SELFPAY ==
[2021-11-16 10:20] LABS: ALB/GLOB Ratio 1.1 RATIO (0.9-2.4); AST(SGOT) 13 U/L (15-37); Alanine Aminotransfer ALT/SGPT 29 U/L (16-61); Albumin, Serum 3.5 g/dL (3.2-5.0); Alkaline Phosphatase 60 U/L (45-117); Anion Gap 3 (5-15); BUN 10 mg/dL (7-18); BUN/Creat Ratio 10.6 RATIO (10-20); Calcium,Total 8.4 mg/dL (8.5-10.1); Chloride 111 mmol/L (98-107); Cholesterol 109 mg/dL (200); Creatinine, Serum 0.94 mg/dL (0.70-1.30); EST Glomerular Filtration Rate 86 mL/min (>60); Est Glom Filt Rate - Afr Amer 104 mL/min (>60); Globulin 3.1 g/dL (2.2-4.2); Glucose 108 mg/dL (74-106); High Density Lipoprotein 40 mg/dL; PSA,Total - Annual Screen 1.39 ng/mL (0.00-4.00); Protein, Total 6.6 g/dL (6.4-8.2); Sodium Level 142 mmol/L (136-145); Triglycerides 43 mg/dL; Very Low Density Lipoprotein 9 mg/dL (5-40)
== END | disposition home or self-care (01) ==
PROVIDERS: PCP Family Medicine; Referring Provider Family Medicine; Visit Provider Family Medicine
DX: Z12.5 Encounter for screening for malignant neoplasm of prostate (principal); E78.5 Hyperlipidemia, unspecified; Z86.73 Personal history of transient ischemic attack (TIA), and cerebral infarction without residual deficits
CPT/HCPCS: 36415; 80053; 80061; 84153; G0103

== ENCOUNTER → 2022-03-15 | Outpatient (CLI) | payer OTHER, SELFPAY ==
[2022-03-15 17:41] LABS: Squamous Epithelial Cells - UA 0 SEEN /hpf (0-5)
[2022-03-15 18:02] LABS: Color, Urine Yellow (Yellow); Glucose, Dipstick Normal (Normal); Ketone-Dipstick 5 mg/dl (Negative); Leukocyte Esterase-Dipstick 500 /ul (Negative); Nitrite-Dipstick Negative (Negative); Occult Blood-Urine 50 /ul (Negative); Protein-Dipstick 15 mg/dl (Negative); Urine Bilirubin Dipstick Negative (Negative); Urine Clarity Clear (Clear); Urine Urobilinogen Normal (Normal)
[2022-03-15 19:04] LABS: Bacteria 1+ /hpf (None Seen); Mucous, Urine 3+ /hpf (<or=2+); Red Blood Cells-Urine 5-10 SEEN /hpf (0-5); White Blood Cells 10-25 SEEN /hpf (0-5)
== END | disposition home or self-care (01) ==
PROVIDERS: PCP Family Medicine; Visit Provider Family Medicine
DX: Z00.00 Encounter for general adult medical examination without abnormal findings (principal)
CPT/HCPCS: 81001; 87086

== ENCOUNTER → 2022-03-18 | Outpatient (CLI) | payer OTHER, SELFPAY | END | disposition home or self-care (01) | LOC: MFPLAB 16:08 | PROVIDERS: PCP Family Medicine; Referring Provider Family Medicine; Visit Provider Family Medicine | DX: R31.9 Hematuria, unspecified (principal) | CPT/HCPCS: 87086 ==

== ENCOUNTER 2022-08-16 08:50 | Day surgery (SDC) | payer OTHER, SELFPAY ==
[2022-08-16] MEDS: Lidocaine Jelly 2% 20 ML Syringe (URO-JET) 1 APPLIC (09:10)
[2022-08-16 09:13] VITALS: BP 144/86; PULSE 67; RESP 16; TEMP 36.4; O2SAT 98
== END 2022-08-16 23:59 | disposition home or self-care (01) ==
PROVIDERS: PCP Family Medicine; Referring Provider Surgery; Visit Provider Surgery
PROC: F00ZJWZ Instrumental Swallowing and Oral Function Assessment using Swallowing Equipment (ICD-10-PCS; CPT 43235; principal; 2022-08-16 08:55)
DX: K21.9 Gastro-esophageal reflux disease without esophagitis (principal)
CPT/HCPCS: 91010

== ENCOUNTER → 2023-11-15 | Outpatient (CLI) | payer OTHER, SELFPAY ==
--- NOTE | 2023-11-15 08:03 | RAD_ITS ---
STUDY: X-RAY - ESOPHAGUS (BARIUM SWALLOW) WITH FLUOROSCOPY REASON FOR EXAM: Male, 63 years old. dysphagia. Hx stenosis TECHNIQUE: 16 view(s) of the esophagus were obtained following swallowing of barium. FLUOROSCOPY TIME (if supplied): (36 seconds) minutes/seconds. 15 mGy. COMPARISON: None. FINDINGS: There is no demonstrated esophageal foreign body. There is no demonstrated stricture or mucosal abnormality. Normal gastroesophageal junction, without a demonstrated hiatal hernia. The patient ingested a 12 mm tablet of barium. The tablet is trapped at the gastroesophageal junction. Normal visualized aortic arch and descending thoracic aorta. Normal visualized pulmonary parenchyma. Normal visualized osseous structures of the thorax. RAD/Esophagus Dual Contrast IMPRESSION: Trapping of the ingested 12 mm tablet of barium. Endoscopic correlation recommended. Electronically Signed: Melvin Potter MD at 8:50 EDT ,
== END | disposition home or self-care (01) ==
PROVIDERS: PCP Family Medicine; Referring Provider Family Medicine; Visit Provider Family Medicine
DX: R13.19 Other dysphagia (principal)
CPT/HCPCS: 74221

== ENCOUNTER → 2024-06-17 | Outpatient (CLI) | payer OTHER, SELFPAY ==
[2024-06-17 11:41] LABS: AST(SGOT) 24 U/L (15-37); Alanine Aminotransfer ALT/SGPT 49 U/L (16-61); Albumin, Serum 3.6 g/dL (3.2-5.0); Alkaline Phosphatase 68 U/L (45-117); Anion Gap 2 (5-15); BUN 16 mg/dL (7-18); Calcium,Total 8.9 mg/dL (8.5-10.1); Chloride 108 mmol/L (98-107); Cholesterol 129 mg/dL (200); Creatinine, Serum 1.14 mg/dL (0.70-1.30); EST Glomerular Filtration Rate 68 mL/min (>60); Est Glom Filt Rate - Afr Amer 83 mL/min (>60); Globulin 3.5 g/dL (2.2-4.2); Glucose 107 mg/dL (74-106); High Density Lipoprotein 42 mg/dL; PSA,Total - Annual Screen 1.67 ng/mL (0.00-4.00); Potassium 4.5 mmol/L (3.5-5.1); Protein, Total 7.1 g/dL (6.4-8.2); Sodium Level 137 mmol/L (136-145); Triglycerides 80 mg/dL; Very Low Density Lipoprotein 16 mg/dL (5-40)
== END | disposition home or self-care (01) ==
LOC: MTLAB 07:13
PROVIDERS: PCP Family Medicine; Referring Provider Family Medicine; Visit Provider Family Medicine
DX: E78.5 Hyperlipidemia, unspecified (principal); Z12.5 Encounter for screening for malignant neoplasm of prostate
CPT/HCPCS: 36415; 80053; 80061; 84153; G0103